=== PATIENT | female | born 1940 | race Caucasian/White ===

== ENCOUNTER 2019-12-18 08:26 | Day surgery (SDC) | payer MEDICARE, SELFPAY ==
[2019-12-12 13:25] VITALS: BMI 24.5
--- NOTE | 2019-12-13 08:02 | HO.ANESPROP2 ---
HPI - Anesthesia Eval Consult details Narrative: 79yoF for colonoscopy PMFSH Past Medical History Medical History (Updated 12/12/19 @ 13:34 by Dorita Cabrera) GERD (gastroesophageal reflux disease) HTN (hypertension) Surgical History Surgical History (Updated 12/12/19 @ 13:34 by Dorita Cabrera) H/O arthroscopic knee surgery H/O excision of ganglion cyst H/O hemorrhoidectomy H/O rectocele repair History of breast lump/mass excision Hx of colonoscopy Hx of esophagogastroduodenoscopy History of Problems with Anesthesia: Unobtainable Meds Allergies Allergy/AdvReac Type Severity Reaction Status Date / Time amoxicillin Allergy Unknown hives Unverified 05/29/19 00:00 ampicillin Allergy Unknown hives Unverified 05/29/19 00:00 diclofenac [Voltaren] Allergy Unknown Verified 05/29/19 00:00 diltiazem [Tiazac] Allergy Unknown Verified 05/29/19 00:00 Erythromycin Allergy Unknown hives Unverified 05/29/19 00:00 etodolac Allergy Unknown Verified 05/29/19 00:00 meclofenamic acid Allergy Unknown Verified 05/29/19 00:00 Lodine Allergy Unknown Uncoded 05/29/19 00:00 Home Medications Medication Instructions Recorded Confirmed Type amlodipine 1 tab PO DAILY 12/12/19 12/12/19 History aspirin 81 mg PO DAILY 12/12/19 12/12/19 History cholecalciferol (vitamin D3) 50 mcg PO DAILY 12/12/19 12/12/19 History [Vitamin D3] valsartan 1 tab PO DAILY 12/12/19 12/12/19 History vitamin B complex 1 tab PO DAILY 12/12/19 12/12/19 History Exam Exam Date and Time: December 13, 2019 0802 Height,Weight and Vital Signs: Height 5 ft 2 in Weight 60.781 kg Pertinent Lab Results Pertinent Lab Results: 07/2019 BMP WNL Assessment and Plan Assessment Anesthesia Assessment: Chart Reviewed
[2019-12-18 08:32] VITALS: BP 137/58; PULSE 97; RESP 16; TEMP 36.9; O2SAT 97
--- NOTE | 2019-12-18 08:53 | P.CONAN_ITS ---
[facility] Past Medical History Medical History (Updated 12/18/19 @ 08:55 by Vane Neely) GERD (gastroesophageal reflux disease) HTN (hypertension) Obstructive sleep apnea Surgical History Surgical History H/O arthroscopic knee surgery H/O excision of ganglion cyst H/O hemorrhoidectomy H/O rectocele repair History of breast lump/mass excision Hx of colonoscopy Hx of esophagogastroduodenoscopy Social History Social History Smoking Status: Never smoker Use of substances other than those prescribed or required for medical reasons: No Advance Directives: No Advance Directives Information Provided: Yes Meds Allergies Allergy/AdvReac Type Severity Reaction Status Date / Time amoxicillin Allergy Unknown hives Unverified 05/29/19 00:00 ampicillin Allergy Unknown hives Unverified 05/29/19 00:00 diclofenac [Voltaren] Allergy Unknown Verified 05/29/19 00:00 diltiazem [Tiazac] Allergy Unknown Verified 05/29/19 00:00 Erythromycin Allergy Unknown hives Unverified 05/29/19 00:00 etodolac Allergy Unknown Verified 05/29/19 00:00 meclofenamic acid Allergy Unknown Verified 05/29/19 00:00 Lodine Allergy Unknown Uncoded 05/29/19 00:00 Home Medications Medication Instructions Recorded Confirmed Type amlodipine 1 tab PO DAILY 12/12/19 12/18/19 History aspirin 81 mg PO DAILY 12/12/19 12/12/19 History cholecalciferol (vitamin D3) 50 mcg PO DAILY 12/12/19 12/12/19 History [Vitamin D3] valsartan 1 tab PO DAILY 12/12/19 12/18/19 History vitamin B complex 1 tab PO DAILY 12/12/19 12/12/19 History Exam Exam Date and Time: December 18, 2019 0853 Height,Weight and Vital Signs: Height 5 ft 2 in Weight 60.781 kg
[2019-12-18] MEDS: Lactated Ringers 1,000 ML 100 ML IVCONT (08:56)
[2019-12-18 10:28] VITALS: BP 132/50; PULSE 79; RESP 16; TEMP 36.4; O2SAT 98
--- NOTE | 2019-12-18 10:32 | PM.OP ---
Brief Operative Note Date of procedure: 12/18/19 Pre-op diagnosis: Screening Post-op diagnosis: other (Colon polyp, diverticulosis, Int/Ext Hemorrhoids) Procedure: Colonoscopy to cecum with biopsy Surgeon: Sea Wilson Anesthesia: MAC Pathology: other (A. Colon polyp at 30cm) Condition: stable Disposition: PACU
[2019-12-18 10:46] VITALS: BP 125/53; PULSE 80; RESP 14; O2SAT 98
--- NOTE | 2019-12-18 10:50 | OP_ITS ---
SURGEON: Sea Wilson MD INDICATIONS: The patient presents for evaluation of colorectal cancer screening, personal history of tubular adenoma of the colon, and family history of colon cancer. Full consent has been obtained from her for this, including risks of bleeding and perforation. PREOPERATIVE DIAGNOSIS: POSTOPERATIVE DIAGNOSIS: PROCEDURE PERFORMED: Colonoscopy to cecum with biopsy and removal of polyp. ESTIMATED BLOOD LOSS: COMPLICATIONS: ANESTHESIA: Monitored anesthesia care. ASSISTANTS: SPECIMENS: PREOPERATIVE DIAGNOSES: Colorectal cancer screening, family history of colon cancer, personal history of tubular adenoma of the colon. POSTOPERATIVE DIAGNOSES: Colorectal cancer screening, family history of colon cancer, personal history of tubular adenoma of the colon, colon polyp, diverticulosis, internal hemorrhoids, external hemorrhoids. DESCRIPTION OF PROCEDURE: The patient was placed in the left lateral decubitus position. The digital rectal exam revealed some external hemorrhoidal tissue. The Olympus video pediatric colonoscope was entered into the rectum and advanced easily to the cecum. Once in the cecum, I did identify normal-appearing cecal pouch with appendiceal orifice and a normal-appearing ileocecal valve. The entire cecum and ileocecal valve appeared normal. There was transillumination of light deep in the right lower quadrant. The scope was then slowly withdrawn assessing all mucosal surfaces carefully. Preparation was excellent. At 30 cm, there was a flat approximately 4 mm polyp, which was biopsied and completely removed with cold biopsy forceps. I did not visualize any other polyps, colitis, nor angiodysplasia. There was a mild amount of sigmoid diverticulosis. In the rectum, scope was retroflexed visualizing internal hemorrhoids, but no other pathology. The rectal mucosa appeared normal. The scope was straightened and withdrawn from the patient. She tolerated the procedure well and was returned to recovery area in stable condition. IMPRESSION: 1. Small colon polyp, status post biopsy and removal. 2. Mild diverticulosis. 3. Internal and external hemorrhoids. PLAN: The results of the pathology will be checked. Given her age, minimal findings, and multiple previous colonoscopies, even if this polyp today is a tubular adenoma, I do not think she will need any further screening colonoscopies in the future. As such, she will see me on a p.r.n. basis. MD AKASH Lopez/ANNIE / [phone]
[2019-12-18 11:04] VITALS: BP 135/58; PULSE 78; RESP 16; TEMP 36.4; O2SAT 96
== END 2019-12-18 11:43 | disposition home or self-care (01) ==
PROVIDERS: PCP Internal Medicine; Visit Provider Internal Medicine
PROC: 0DJD8ZZ Inspection of Lower Intestinal Tract, Via Natural or Artificial Opening Endoscopic (ICD-10-PCS; CPT 45378; principal; 2019-12-18 09:50)
DX: Z12.11 Encounter for screening for malignant neoplasm of colon (principal); Z86.010 Personal history of colon polyps; Z80.0 Family history of malignant neoplasm of digestive organs; D12.5 Benign neoplasm of sigmoid colon; K57.30 Diverticulosis of large intestine without perforation or abscess without bleeding; K64.8 Other hemorrhoids; K64.4 Residual hemorrhoidal skin tags; I10 Essential (primary) hypertension; Z79.82 Long term (current) use of aspirin; Z79.899 Other long term (current) drug therapy; Z88.1 Allergy status to other antibiotic agents; Z88.8 Allergy status to other drugs, medicaments and biological substances
CPT/HCPCS: 45380; 88305

== ENCOUNTER → 2020-03-04 15:48 | Outpatient (BNVA) | payer MEDICARE, SELFPAY | PROVIDERS: PCP Internal Medicine; Visit Provider Surgery | DX: M79.89 Other specified soft tissue disorders (principal); R22.31 Localized swelling, mass and lump, right upper limb | CPT/HCPCS: 99202 ==

== ENCOUNTER → 2020-08-27 13:13 | Outpatient (BNVA) | payer MEDICARE, SELFPAY | PROVIDERS: PCP Internal Medicine; Referring Provider Internal Medicine; Visit Provider Surgery | DX: M79.89 Other specified soft tissue disorders (principal) | CPT/HCPCS: 99212 ==

== ENCOUNTER 2020-10-26 05:58 | Day surgery (SDC) | payer MEDICARE, SELFPAY ==
[2020-10-16 11:10] VITALS: BMI 25.4
[2020-10-26 06:10] VITALS: BMI 24.5
[2020-10-26 06:11] VITALS: BP 179/69; PULSE 84; RESP 18; TEMP 36.9; O2SAT 97
[2020-10-26] MEDS: Lactated Ringers 1,000 ML 100 ML IVCONT (06:34)
[2020-10-26] MEDS: vancomycin HCL 750 MG in 0.9 % Sodium Chloride 250 ML 270 MG IV (06:39)
--- NOTE | 2020-10-26 07:06 | HO.ANESPROP2 ---
[facility] Active Problems Active Problems: All Active Problems (Updated 08/27/20 @ 13:39 by Spike Tejeda MD) Mass of soft tissue (Acute) Obstructive sleep apnea (Acute) Past Medical History Medical History GERD (gastroesophageal reflux disease) HTN (hypertension) Obstructive sleep apnea Family History Family History Mother Colon cancer Father Mouth cancer Lung cancer Family history of problems with anesthesia: No Surgical History Surgical History H/O arthroscopic knee surgery H/O excision of ganglion cyst H/O hemorrhoidectomy H/O rectocele repair History of breast lump/mass excision Hx of colonoscopy Hx of esophagogastroduodenoscopy History of Problems with Anesthesia: No Social History Social History Alcohol intake: never Patient Tobacco Use Status: Never used Tobacco Use of substances other than those prescribed or required for medical reasons: No Have you been hit, kicked, punched, or otherwise hurt by someone within the past year? If so, by whom?: No Are you DNR?: No Advance Directives Information Provided: No Meds Allergies Allergy/AdvReac Type Severity Reaction Status Date / Time amoxicillin Allergy Intermediate hives Verified 10/26/20 06:19 ampicillin Allergy Intermediate hives Verified 10/26/20 06:19 Erythromycin Allergy Intermediate hives Verified 10/26/20 06:19 diclofenac [Voltaren] Allergy Unknown Unknown Verified 10/26/20 06:19 diltiazem [Tiazac] Allergy Unknown Unknown Verified 10/26/20 06:19 etodolac Allergy Unknown Unknown Verified 10/26/20 06:19 meclofenamic acid Allergy Unknown Unknown Verified 10/26/20 06:19 Lodine Allergy Unknown Unknown Uncoded 10/26/20 06:19 Active Medications: Current Medications Generic Name Dose Route Start Last Admin Trade Name Freq PRN Reason Stop Dose Admin Vancomycin HCl 750 mg/ Sodium 265 mls @ 270 mls/hr 10/26/20 06:30 10/26/20 06:39 Chloride IV 10/26/20 07:28 270 mls/hr PREOP ONE Administration Lactated Ringer's 1,000 mls @ 100 mls/hr 10/26/20 06:00 10/26/20 06:34 Lr IVCONT 100 mls/hr .Q10H KADEN Administration Pharmacy Consult 1 each 10/26/20 05:48 10/26/20 06:35 Consult Rx Vancomycin Dosing MISCELLANE 1 each DAILY PRN Administration Consult order Home Medications Medication Instructions Recorded Confirmed Last Taken Type amlodipine 5 mg tablet 1 tab PO DAILY 12/12/19 10/16/20 12/18/19 History aspirin 81 mg tablet 81 mg PO DAILY 12/12/19 10/16/20 Unknown History cholecalciferol (vitamin D3) 50 50 mcg PO DAILY 12/12/19 10/16/20 Unknown History mcg (2,000 unit) tablet (Vitamin D3) valsartan 160 mg tablet 1 tab PO DAILY 12/12/19 10/16/20 12/18/19 History vitamin B complex 1 tab PO DAILY 12/12/19 10/16/20 Unknown History calcium 1 tab PO DAILY 03/04/20 10/16/20 Unknown History carbonate,citrate-magnesium oxide 200 mg calcium-50 mg tablet Exam Exam Date and Time: October 26, 2020 0706 Height,Weight and Vital Signs: Height 5 ft 1 in Weight 58.967 kg Last Vital Signs Temp 98.5 F 10/26/20 06:11 Pulse 84 10/26/20 06:11 Resp 18 10/26/20 06:11 BP 179/69 H 10/26/20 06:11 Pulse Ox 97 10/26/20 06:11 Airway Mallampati Class: II TM Dist: >3cm Neck ROM: Full Assessment and Plan Assessment Anesthesia Assessment: Anesthesia Plan Discussed and Chart Reviewed Final Anesthetic Review Family History of Problems with Anesthesia: No History of Problems with Anesthesia: No NPO: Yes ASA Class: II Final Preanesthetic Review: No Changes in Pt Med Stat, Meds/Allgs Chart Reviewed, Consent Obtained/Reviewed and Anes Risks/Benef Reviewed Patient Risk: Low Procedure Risk: Low Assessment/Block/Sedation in SS: Assess/Block/Sedation-SS Anesthetic Plan Anesthetic Plan: GA and MAC: Disposition: Standard PACU
--- NOTE | 2020-10-26 07:22 | MHC.SHP ---
Pre-Procedural Eval Section A Date of Service: 10/26/20 The patient is an INPATIENT: No Changes since office visit: Yes Patient answered all questions; No Cold of Flu in the past 2 weeks, No New Medical Problems and No Changes in Medication The History & Physical has been completed within 30 days and I have reviewed it.: Yes Section B Chief Complaint: Mass of Soft Tissue Allergies: Allergies Allergy/AdvReac Type Severity Reaction Status Date / Time amoxicillin Allergy Intermediate hives Verified 10/26/20 06:19 ampicillin Allergy Intermediate hives Verified 10/26/20 06:19 Erythromycin Allergy Intermediate hives Verified 10/26/20 06:19 diclofenac [Voltaren] Allergy Unknown Unknown Verified 10/26/20 06:19 diltiazem [Tiazac] Allergy Unknown Unknown Verified 10/26/20 06:19 etodolac Allergy Unknown Unknown Verified 10/26/20 06:19 meclofenamic acid Allergy Unknown Unknown Verified 10/26/20 06:19 Lodine Allergy Unknown Unknown Uncoded 10/26/20 06:19 Plan Diagnosis/Plan: Unchanged I have reviewed the history and physical and performed a pertinent physical examination on my patient. No changes have occurred unless specified.
--- NOTE | 2020-10-26 08:18 | W.PM.OPN ---
Operative Note Operative Note Date of Service: 10/26/20 Narrative: Preoperative diagnosis: Right upper arm lipoma Postoperative diagnosis: Same Procedure: Excision of lipoma right upper arm Surgeon: Spike Tejeda MD Senior Web Analyst: No physician Anesthesia: Mac Indications for procedure: 80-year-old female with a large soft tissue mass in the right upper arm, increasing in size. Operative findings: Large lipoma measuring approximately 8 cm in diameter in the right upper arm Specimen: Lipoma right upper arm Estimated blood loss: 5 cc Complications: None Procedure details: Patient was brought to the OR and placed in a supine position. After administering light sedation the patient right upper arm was prepped with ChloraPrep and draped in a sterile fashion. A surgical time-out was called and the consent confirmed. Patient received preoperative vancomycin and Venodyne boots were in place. Local anesthesia consisting of 1% lidocaine with epinephrine plus Sensorcaine 0.25% Sensorcaine with epinephrine was infiltrated circumferentially around the lipoma. Incision was then made in longitudinal fashion carried down through subcutaneous tissue up to the lipoma. A combination of blunt sharp dissection was then used to dissect the lipoma from the surrounding subcutaneous tissue. A portion of the lipoma extended below the muscle fascia. This was dissected free and sent to pathology for further examination. Wounds were then checked for hemostasis. Wounds were then irrigated with saline solution and suctioned dry. Deep subcutaneous tissue was then reapproximated using interrupted 3-0 Polysorb sutures. Dermis was reapproximated using interrupted 3-0 Polysorb sutures. Skin was then closed using a running subcuticular 4-0 Polysorb suture. Steri-Strips 2 x 2 gauze and Tegaderm were then applied. The patient tolerated the procedure well. Sponge, instrument, needle counts reported as correct. The patient was transferred to PACU in stable condition.
[2020-10-26 08:22] VITALS: BP 88/34; PULSE 75; RESP 14; TEMP 36.3; O2SAT 96
[2020-10-26 08:38] VITALS: BP 125/50; PULSE 70; RESP 16; TEMP 36.3; O2SAT 96
[2020-10-26 08:43] VITALS: BP 126/54; PULSE 68; RESP 16; O2SAT 96
== END 2020-10-26 09:32 | disposition home or self-care (01) ==
PROVIDERS: PCP Internal Medicine; Visit Provider Surgery
PROC: (CPT 24073; principal; 2020-10-26 07:30)
DX: D17.21 Benign lipomatous neoplasm of skin and subcutaneous tissue of right arm (principal); I10 Essential (primary) hypertension; G47.33 Obstructive sleep apnea (adult) (pediatric); K21.9 Gastro-esophageal reflux disease without esophagitis; Z79.82 Long term (current) use of aspirin; Z79.899 Other long term (current) drug therapy; Z88.0 Allergy status to penicillin; Z88.1 Allergy status to other antibiotic agents; Z88.8 Allergy status to other drugs, medicaments and biological substances
CPT/HCPCS: 24073; 88304; J2405; J3010; J3370

== ENCOUNTER → 2020-11-03 14:37 | Outpatient (BNVA) | payer MEDICARE, SELFPAY | PROVIDERS: PCP Internal Medicine; Referring Provider Internal Medicine; Visit Provider Surgery | DX: Z48.817 Encounter for surgical aftercare following surgery on the skin and subcutaneous tissue (principal); Z87.2 Personal history of diseases of the skin and subcutaneous tissue | CPT/HCPCS: 99212 ==

== ENCOUNTER 2020-12-07 10:48 | Outpatient (REF) | payer MEDICARE, SELFPAY ==
--- NOTE | ~2020-12-07 | MM_ITS ---
EXAMINATION: MM SCREENING DIGITAL BREAST TOMOSYNTHESIS, BILATERAL CLINICAL INFORMATION: Screening. Asymptomatic. The lifetime risk of breast cancer based on the Tyrer-Cuzick Model is 2%. COMPARISON: Mammography: 10/16/2019, 10/11/2018, 09/29/2017 TECHNIQUE: Digital breast tomosynthesis is performed in both the craniocaudal and mediolateral oblique views along with computer-aided detection (CAD). Synthesized 2D images are generated from the tomosynthesis. FINDINGS: There are scattered areas of fibroglandular density (ACR BI-RADS breast composition Category b). There are no significant masses, abnormal calcifications, or other abnormalities. Parenchymal pattern is similar to prior studies. No developing density. The axilla and skin contours are unremarkable. MM/MM tomosynthesis screening BI IMPRESSION: No mammographic evidence of malignancy. ASSESSMENT: BI-RADS 1: Negative RECOMMENDATION: Routine annual mammography screening. This patient's information was entered into a reminder system with a target due date for their next mammogram.
== END 2020-12-07 10:49 | disposition home or self-care (01) ==
LOC: HO.MAMMO 10:48
PROVIDERS: Visit Provider Internal Medicine
DX: Z12.31 Encounter for screening mammogram for malignant neoplasm of breast (principal)
CPT/HCPCS: 77063; 77067

== ENCOUNTER 2021-05-31 12:40 | Outpatient (REF) | payer MEDICARE, SELFPAY ==
--- NOTE | 2021-06-18 13:06 | MHC.AU.AEV ---
Adult Audiological Evaluation Date of Visit: 05/31/21 Reason for Appointment: Patient has noticed that over the last year she is not hearing as well as she used to. She has been experiencing tinnitus. There is a family history of hearing loss in her grandmother, father, and brother. Hearing Handicap Inventory Does a hearing problem cause you to feel embarrassed when meeting new people?: No Does a hearing problem cause you to feel frustrated when talking to members of your family?: No Do you have difficulty when someone speaks in a whisper?: Sometimes Do you feel handicapped by a hearing problem?: No Does a hearing problem cause you difficulty when visiting friends, relatives, or neighbors?: No Does a hearing problem cause you to attend yarsani service services less often than you would like?: No Does a hearing problem cause you to have arguments with family members?: No Does a hearing problem cause you difficulty when listening to TV or radio?: Sometimes Do you feel that any difficult with your hearing limits or hampers your personal or social life?: No Does a hearing problem cause you difficulty when in a restaurants with relatives or friends?: Sometimes HHIE SCORE: 6 Based on HHIE score, patient has: No perceived hearing handicap Ear History: Ear Deformity: None Reported Recent Ear Drainage: None Reported Recent Ear Pain: None Reported Family History of Hearing Loss?: Yes Recent Ear Infections: None Reported Ear Infections in Childhood: None Reported History of Ear Wax Buildup: None Reported Previous Ear Surgery: None Reported Bothersome Tinnitus/Ringing/Noises in Ears: Both Ears Ear used on the phone: Left Ear Blocked/Full Sensation in Ear(s): None Reported History of occupational noise exposure?: No History: No Medical History: Medical History: High Blood Pressure, Pneumonia in 1985, Cataract Eye Surgery in 2013 and 2014 Allergies: [place]cl[place], Erythromycin, Amoxicllin, Ampicillin, Voltaren, Lodine, Tiazac Medication List: Amlodipine, Valsartan, Aspirin, Calcium Magnesium, Vitamin B Complex, Vitamin D3, Magnesium Asporotate Otoscopy: Right Ear: Unremarkable Left Ear: Unremarkable Tympanometry: Tympanometry performed due to: To assess integrity of the middle ear system Right Ear: Normal Middle Ear System (Type A) Left Ear: Normal Middle Ear System (Type A) Hearing Evaluation: Transducer(s) Used: Insert Earphones Method: Conventional Audiometry Stimuli Used: Pure Tones Right Ear: Description of Hearing: Normal from 250-500 Hz, mild at 1000 Hz, normal [id number] Hz, sloping to moderate sensorineural hearing loss by 8000 Hz Left Ear: Description of Hearing: Normal from 250-2000 Hz, sloping to moderate sensorineural hearing loss by 8000 Hz Speech Recognition Threshold (SRT): Method Used: Recorded Lists Stimuli Used: Spondee Words Right Ear: 20 dBHL Left Ear: 20 dBHL Word Discrimination: Method: Recorded Lists Word Lists Used:: W-22 Right Ear: 100% at 60 dBHL Left Ear: 100% at 60 dBHL Most Comfortable Level (MCL): Right Ear: 60 dBHL Left Ear: 60 dBHL QuickSIN: 2 dB SNR loss, which suggests average/normal level of difficulty listening in noise Interpretation of Results: Patient presents with hearing that is mostly within normal range, sloping to a moderate high-frequency sensorineural hearing. With type of hearing loss, the patient is likely still hearing sufficiently well in most daily situations. The hearing loss may become more noticeable if there is background noise or if the person speaking is far away. The speech sounds that may be more difficult to hear include /s/, /th/, and /f/. This can cause certain words to sound similar, such as mouth and mouse . At this time, hearing aids are not warranted. Recommendations: Audiological re-evaluation in one year. To help optimize listening ability: -Minimize background noise when possible -Speak to the patient in a clear voice, from a close distance, and [id number] -Slowing down the rate of speech is usually more helpful than raising one's voice or yelling -Gain the patient's full attention before talking Diagnosis: Primary Diagnosis: H90.3 Bilateral Sensorineural Hearing Loss Signature: Provider: Aneesh Espana, [facility]
== END 2021-05-31 12:41 | disposition home or self-care (01) ==
LOC: HO.SH 12:40
PROVIDERS: Visit Provider Internal Medicine
DX: H91.93 Unspecified hearing loss, bilateral (principal)
CPT/HCPCS: 92557; 92567

== ENCOUNTER 2021-06-01 14:24 | Outpatient (REF) | payer MEDICARE, SELFPAY ==
--- NOTE | ~2021-06-01 | MM_ITS ---
EXAMINATION: BONE DENSITOMETRY CLINICAL INDICATION: Disorder of bone density and structure. COMPARISON: Previous BD dated 02/13/2019 and baseline BD dated 01/13/2005. TECHNIQUE: Using a Interhyp DXA System (software version: 13.1) manufactured by [employer], dual-energy x-ray absorptiometry was performed of the lumbar spine and left hip. The images are of good technical quality. Summary results are attached. FINDINGS: AP SPINE L1-L4: Current: BMD 0.960 g/cm2, Z-score 0.2, T-score -1.8, osteopenia, 1.2% decrease from previous, 7.9% decrease from baseline (<5% change is not significant). Prior: BMD 0.972 g/cm2. Baseline: BMD 1.042 g/cm2. LEFT FEMUR, NECK: Current: BMD 0.822 g/cm2, Z-score 0.7, T-score -1.6, osteopenia. Prior: BMD 0.830 g/cm2. Baseline: BMD 0.893 g/cm2. LEFT FEMUR, TOTAL: Current: BMD 0.891 g/cm2, Z-score 1.2, T-score -0.9, normal, 2.7% decrease from previous, 11.4% decrease from baseline (<5% change is not significant). Prior: BMD 0.916 g/cm2. Baseline: BMD 1.006 g/cm2. IDENTIFIED RISK FACTORS: Height loss, family history (parental hip fracture), menopause. HISTORY OF FRACTURE: None listed. MEDICATIONS: Calcium supplements or multivitamin, vitamin D. MM/XR DEXA axial skeleton IMPRESSION: 1. DIAGNOSIS: Osteopenia based on the lowest T-score value of -1.8 in the lumbar spine applying World Health Organization criteria. 2. 10-YEAR FRACTURE RISK PREDICTION, FRAX: Major osteoporotic fracture (clinical spine, forearm, hip or shoulder) 23.3%. Hip fracture 13.2%. 3. Treatment Recommendations: NOF guidelines recommend consideration for treatment in postmenopausal women and men age 50 and older presenting with the following: -A hip or vertebral (clinical or morphometric) fracture. -T-score less than or equal to -2.5 at the femoral neck or spine after appropriate evaluation to exclude secondary causes. -Low bone mass at the hip or spine and a 10-year fracture probability by FRAX of greater than or equal to 3% for hip fracture or greater than or equal to 20% for major osteoporotic fracture based on the [place] adapted WHO algorithm. 4. Other Recommendations: All treatment decisions require clinical judgment and consideration of individual patient factors, including patient preferences, comorbidities, previous drug use, risk factors not captured in the FRAX model (e.g. frailty, falls, vitamin D deficiency, increased bone turnover, interval significant decline in bone density) and possible under or overestimation of fracture risk by FRAX. Additional medical evaluation for secondary cause of low bone mineral density may be appropriate. FUTURE SCAN RECOMMENDATION: People with diagnosed cases of osteoporosis or at high risk for fracture should have regular bone mineral density tests. For patients eligible for Medicare, routine testing is allowed once every 2 years. The testing frequency can be increased to one year for patients who have rapidly progressing disease, those who are receiving or discontinuing medical therapy to restore bone mass, or have additional risk factors.
== END 2021-06-01 14:25 | disposition home or self-care (01) ==
LOC: HO.MAMMO 14:24
PROVIDERS: Visit Provider Internal Medicine
DX: Z13.820 Encounter for screening for osteoporosis (principal); Z78.0 Asymptomatic menopausal state; M85.80 Other specified disorders of bone density and structure, unspecified site
CPT/HCPCS: 77080

== ENCOUNTER 2021-12-08 11:00 | Outpatient (REF) | payer MEDICARE, SELFPAY ==
--- NOTE | ~2021-12-08 | MM_ITS ---
EXAMINATION: MM SCREENING DIGITAL BREAST TOMOSYNTHESIS, BILATERAL CLINICAL INFORMATION: Screening. Asymptomatic. The lifetime risk of breast cancer based on the Tyrer-Cuzick Model is under 2%. COMPARISON: Mammography: 12/07/2020, 10/16/2019, 10/11/2018 TECHNIQUE: Digital breast tomosynthesis is performed in both the craniocaudal and mediolateral oblique views along with computer-aided detection (CAD). Synthesized 2D images are generated from the tomosynthesis. FINDINGS: There are scattered areas of fibroglandular density (ACR BI-RADS breast composition Category b). Parenchymal pattern is similar to prior studies. No developing density or architectural abnormality. There are no significant masses, abnormal calcifications, or other abnormalities. The axilla and skin contours are unremarkable. No significant changes. MM/MM tomosynthesis screening BI IMPRESSION: No mammographic evidence of malignancy. ASSESSMENT: BI-RADS 1: Negative RECOMMENDATION: Routine annual mammography screening. This patient's information was entered into a reminder system with a target due date for their next mammogram.
== END 2021-12-08 11:01 | disposition home or self-care (01) ==
LOC: HO.MAMMO 11:00
PROVIDERS: Visit Provider Internal Medicine
DX: Z12.31 Encounter for screening mammogram for malignant neoplasm of breast (principal)
CPT/HCPCS: 77063; 77067

== ENCOUNTER 2022-12-14 09:29 | Outpatient (REF) | payer MEDICARE, SELFPAY ==
--- NOTE | ~2022-12-14 | MM_ITS ---
EXAMINATION: MM SCREENING DIGITAL BREAST TOMOSYNTHESIS, BILATERAL CLINICAL INFORMATION: Screening. Asymptomatic. COMPARISON: Mammography: 11/30/2021, 12/07/2020, 10/16/2019, 10/11/2018 TECHNIQUE: Digital breast tomosynthesis is performed in both the craniocaudal and mediolateral oblique views along with computer-aided detection (CAD). Synthesized 2D images are generated from the tomosynthesis. FINDINGS: There are scattered areas of fibroglandular density (ACR BI-RADS breast composition Category b). There are no suspicious masses, suspicious grouped calcifications, or areas of architectural distortion in either breast. The parenchymal pattern is stable from prior exams. There are no skin changes. There are no axillary abnormalities. MM/MM tomosynthesis screening BI IMPRESSION: No mammographic evidence of malignancy. ASSESSMENT: BI-RADS BI-RADS 1 - Negative RECOMMENDATION: Routine annual mammography screening. 1 year F/U This examination should not preclude the clinical evaluation of a suspicious palpable abnormality. This patient's information was entered into a reminder system with a target due date for their next mammogram.
== END 2022-12-14 09:30 | disposition home or self-care (01) ==
LOC: HO.MAMMO 09:29
PROVIDERS: PCP Internal Medicine; Visit Provider Internal Medicine
DX: Z12.31 Encounter for screening mammogram for malignant neoplasm of breast (principal)
CPT/HCPCS: 77063; 77067

== ENCOUNTER → 2022-12-14 09:45 | Outpatient (BNV) | payer MEDICARE, SELFPAY | PROVIDERS: PCP Internal Medicine; Visit Provider Radiology Diagnostic Radiology | DX: Z12.31 Encounter for screening mammogram for malignant neoplasm of breast (principal) | CPT/HCPCS: 77063; 77067 ==

== ENCOUNTER 2023-03-15 14:19 | Outpatient (AMB) | payer MEDICARE, SELFPAY ==
[2023-03-15 14:22] VITALS: BP 122/66; PULSE 81; BMI 25.2
--- NOTE | 2023-03-15 14:22 | MHC.OFFVIS ---
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 Accompanied by: Self / Same As Patient Allergies amoxicillin Allergy (Intermediate, Verified 03/15/23 14:25) Hives ampicillin Allergy (Intermediate, Verified 03/15/23 14:25) Hives erythromycin base Allergy (Intermediate, Verified 03/15/23 14:25) Hives diclofenac [From Voltaren] Allergy (Unknown, Verified 03/15/23 14:25) Unknown diltiazem [From Tiazac] Allergy (Unknown, Verified 03/15/23 14:25) Unknown etodolac Allergy (Unknown, Verified 03/15/23 14:25) Unknown meclofenamic acid Allergy (Unknown, Verified 03/15/23 14:25) Unknown Lodine Allergy (Unknown, Uncoded 03/15/23 14:25) Unknown Medication List - Last Reconciled 03/15/23 by Malik An MD amlodipine 5 mg PO DAILY aspirin 81 mg PO DAILY calcium carb and citrat-mag ox 200 mg calcium- 50 mg 1 tab PO DAILY cholecalciferol (vitamin D3) (Vitamin D3) 50 mcg PO DAILY valsartan 160 mg PO DAILY vitamin B complex 1 tab PO DAILY HPI HPI Comments History of Present Illness Details Pleasant 82-year-old female who is referred to us for chest pain she has been experiencing left-sided dull ache which happens randomly. The area on the chest is sensitive and when she touches it is somewhat tender. Even when she is driving in the seatbelt touch is the area she feels uncomfortable. She is active and does not get any exertional discomfort in the chest. 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 She is saying that she tried to walk up hill recently and had mild discomfort in the throat. She is on a calcium channel ara 5 mg amlodipine and valsartan for hypertension. Her blood pressure control is good. She said she had a of blood workup recently and her cholesterol was normal. She has been a lifelong nonsmoker. She did not have any 2nd hand smoke exposure. [facility] Medical History (Updated 03/15/23 @ 14:55 by Malik An MD) Obstructive sleep apnea HTN (hypertension) GERD (gastroesophageal reflux disease) Surgical History H/O excision of ganglion cyst H/O arthroscopic knee surgery History of breast lump/mass excision H/O rectocele repair H/O hemorrhoidectomy Hx of esophagogastroduodenoscopy Hx of colonoscopy Family History Mother Colon cancer Father Mouth cancer Lung cancer Social History Alcohol intake: never Patient Tobacco Use Status: Never used Tobacco Review of Systems Const Denies chills, Denies daytime sleepiness, Denies fatigue, Denies fever(s), Denies frequent falls, Denies night sweats, Denies snoring, Denies weakness, Denies weight gain and Denies weight loss Eyes Denies loss of vision ENT Denies dizziness and Denies hearing loss Card Denies chest pain with activity, Denies syncope, Denies rapid heart rate, Denies edema, Denies claudication, Denies leg edema, Denies lightheadedness, Denies dyspnea, Denies dyspnea on exertion and Denies orthopnea Resp Denies cough, Denies excessive phlegm production, Denies dyspnea, Denies dyspnea on exertion, Denies snoring and Denies wheezing GI Denies abdominal pain, Denies hematochezia, Denies change in bowel habits, Denies change in stool character, Denies heartburn, Denies nausea and Denies vomiting Denies hematuria, Denies urinary frequency and Denies dysuria Musc Denies arthralgias, Denies muscle weakness, Denies numbness and Denies tingling Skin/Breast Denies nail changes and Denies rash Neuro Denies Abnormal speech present, Denies dizziness, Denies syncope, Denies frequent falls, Denies loss of vision, Denies memory loss, Denies numbness, Denies tingling and Denies weakness Psych Denies depression and Denies memory loss Endo Denies fatigue Aller/Immun Denies wheezing Physical Exam Vital Signs: Last Vital Signs Pulse 81 03/15/23 14:22 BP 122/66 03/15/23 14:22 BMI result Body Mass Index 25.2 GENERAL APPEARANCE: in no acute distress, pleasant. NECK: no carotid bruit, no jugular venous distention. SKIN: no suspicious lesions, warm and dry. HEART: no murmurs, regular rate and rhythm. LUNGS: clear to auscultation bilaterally. ABDOMEN: soft, nontender. EXTREMITIES: no edema. PERIPHERAL PULSES: equal. NEUROLOGIC: No gross deficits, AAO X 3 Neuro Speech: No Abnormal speech present Office Procedures EKG Details: Sinus rhythm 81 beats per minute, nonspecific ST abnormality, QTC 434 milliseconds. [id number], Complete Assessment & Plan Assessment & Plan (1) HTN (hypertension): Code(s): I10 - Essential (primary) hypertension (2) Chest discomfort: Code(s): R07.89 - Other chest pain Plan Pleasant 82-year-old female with background of hypertension presenting for assessment of chest pain. She has left-sided dull ache which happens randomly but clearly it is nonexertional. I think this is non anginal pain and likely musculoskeletal in origin. She has been experiencing throat discomfort with activity and had stress testing done for that in 1999. This was followed by cardiac catheterization and she was told that she may have syndrome X. She still gets some symptoms in the throat with activity and recently tried to go up hill and experienced throat discomfort. I am going to arrange a stress echocardiogram for her. Continue same medications otherwise. Thank you for allowing me to participate in the care of your patient. Please feel free to contact me if you have any questions. Orders: Orders CA echo stress exercise Today R07.89 - Other chest pain Coding Level of Care Code New Pt Level 4 (66792) Diagnoses HTN (hypertension) I10 Chest discomfort R07.89 CPT Codes EKG - CPT: [id number], Complete ([id number])
== END 2023-03-15 14:52 | disposition home or self-care (01) ==
PROVIDERS: PCP Internal Medicine; Visit Provider Internal Medicine Cardiovascular Disease
DX: I10 Essential (primary) hypertension (principal); R07.89 Other chest pain
CPT/HCPCS: 93010; 99204

== ENCOUNTER → 2023-03-15 14:19 | Outpatient (BNVA) | payer MEDICARE, SELFPAY | PROVIDERS: PCP Internal Medicine; Visit Provider Internal Medicine Cardiovascular Disease | DX: I10 Essential (primary) hypertension (principal); R07.89 Other chest pain | CPT/HCPCS: 93005; 99202 ==

== ENCOUNTER → 2023-03-31 10:39 | Outpatient (REF) | payer MEDICARE, SELFPAY ==
--- NOTE | 2023-03-31 10:41 | CA_ITS ---
Acquisition Time: 2023-03-31 10:42:50 Total Exercise Time: 00:05:14 Test Indications: CP Medications: SEE H Protocol: MOD KELSY Max HR: 127 BPM 90% of Pred: 140 BPM Max BP: 148/075 mmHG Max Work Load: 3.4 METS Exercise stress test wth exercise 5 min 14 sec of Modified Kelsy protocol, achieving 90% MPHR, without anginal symptoms, with frequent isolated PACs and brief atrial runs, with lower BP readings during exercise compared to baseline and in recovery ( can't exclude technical issue), with baseline EKG showing nonspecific ST abnormality inferior and V4-V6 then with exercise there is 1-1.5mm horizontal ST depression in those leads, suggesting ischemia. Echo images obtained by [employer] at rest and immediately post peak exercise. Definity contrast used. Test reviewed with Dr Stafford. Referred By: Malik An Overread By: MEHDI CHILDERS
== END ==
LOC: HO.CARD 10:39
PROVIDERS: PCP Internal Medicine; Visit Provider Internal Medicine Cardiovascular Disease
DX: R07.89 Other chest pain (principal)
CPT/HCPCS: 93350; Q9957

== ENCOUNTER → 2023-03-31 10:41 | Outpatient (BNV) | payer MEDICARE, SELFPAY | PROVIDERS: PCP Internal Medicine; Visit Provider Nurse Practitioner Family | DX: R07.89 Other chest pain (principal) | CPT/HCPCS: 93016; 93018; 93350; 93352 ==

== ENCOUNTER 2023-07-24 13:35 | Outpatient (AMB) | payer MEDICARE, SELFPAY ==
[2023-07-24 13:54] VITALS: BP 146/70; PULSE 71; O2SAT 98; BMI 25.2
--- NOTE | 2023-07-24 13:54 | A.OFFVIS_ITS ---
Vital Signs 07/24/23 13:54 Height 5 ft 1 in Weight 133 lb 9.602 oz BMI 25.2 BP 146/70 H Blood Pressure Location Lt brachial Position Sitting Pulse 71 Pulse Source Pulse Oximeter Pulse Oximetry (%) 98 Intake Visit Reasons: 3 mth f/up stress echo Intake Note: pt its doing fine. 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 Accompanied by: Self / Same As Patient Allergies amoxicillin Allergy (Intermediate, Verified 03/15/23 14:25) Hives ampicillin Allergy (Intermediate, Verified 03/15/23 14:25) Hives erythromycin base Allergy (Intermediate, Verified 03/15/23 14:25) Hives diclofenac [From Voltaren] Allergy (Unknown, Verified 03/15/23 14:25) Unknown diltiazem [From Tiazac] Allergy (Unknown, Verified 03/15/23 14:25) Unknown etodolac Allergy (Unknown, Verified 03/15/23 14:25) Unknown meclofenamic acid Allergy (Unknown, Verified 03/15/23 14:25) Unknown Lodine Allergy (Unknown, Uncoded 03/15/23 14:25) Unknown Medication List - Last Reconciled 07/24/23 by Malik An MD amlodipine 5 mg PO DAILY aspirin 81 mg PO DAILY calcium carb and citrat-mag ox 200 mg calcium- 50 mg 1 tab PO DAILY cholecalciferol (vitamin D3) (Vitamin D3) 50 mcg PO DAILY valsartan 160 mg PO DAILY vitamin B complex 1 tab PO DAILY HPI Comments Details: Pleasant 82-year-old female who is referred to us for chest pain she has been experiencing left-sided dull ache which happens randomly. The area on the chest is sensitive and when she touches it is somewhat tender. She is active and does not get any exertional discomfort in the chest. 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 She is saying that she tried to walk up hill recently and had mild discomfort in the throat. She is on a calcium channel ara 5 mg amlodipine and valsartan for hypertension. Her blood pressure control is good. She said she had a of blood workup recently and her cholesterol was normal. She has been a lifelong nonsmoker. She did not have any 2nd hand smoke exposure. 07/24/23: After discussion she was referred for stress echocardiogram. She is returning for follow-up. She was able to exercise for 5 minutes 14 seconds on treadmill. She did not have any anginal symptoms. She had some premature atrial complexes and ST depressions. Stress echo imaging were normal and she did not have any post exercise wall motion abnormality. No obvious diastolic dysfunction was noted. On follow-up she is doing well. She is denying any chest discomfort or shortness of breath. She is saying that she is exercising regularly in gym and has no exertional symptoms. Blood pressure is mildly elevated. [facility] Medical History (Updated 03/15/23 @ 14:55 by Malik An MD) Obstructive sleep apnea HTN (hypertension) GERD (gastroesophageal reflux disease) Surgical History H/O excision of ganglion cyst H/O arthroscopic knee surgery History of breast lump/mass excision H/O rectocele repair H/O hemorrhoidectomy Hx of esophagogastroduodenoscopy Hx of colonoscopy Family History Mother Colon cancer Father Mouth cancer Lung cancer Social History Alcohol intake: never Patient Tobacco Use Status: Never used Tobacco Review of Systems Const Denies chills, Denies fatigue, Denies fever(s), Denies frequent falls, Denies weakness, Denies weight gain and Denies weight loss ENT Denies dizziness Card Denies chest pain, Denies leg edema, Denies lightheadedness, Denies pa lpitations, Denies dyspnea and Denies dyspnea on exertion Resp Denies cough, Denies dyspnea and Denies dyspnea on exertion GI Denies hematochezia Musc Denies abnormal gait, Denies muscle weakness, Denies numbness, Denies radiating pain into limb and Denies tingling Neuro Denies abnormal gait, Denies dizziness, Denies frequent falls, Denies numbness, Denies tingling and Denies weakness Endo Denies fatigue and Denies palpitations Physical Exam Vital Signs: Last Vital Signs Pulse 71 07/24/23 13:54 BP 146/70 H 07/24/23 13:54 Pulse Ox 98 07/24/23 13:54 BMI result Body Mass Index 25.2 GENERAL APPEARANCE: in no acute distress, pleasant. NECK: no carotid bruit, no jugular venous distention. SKIN: no suspicious lesions, warm and dry. HEART: no murmurs, regular rate and rhythm. LUNGS: clear to auscultation bilaterally. ABDOMEN: soft, nontender. EXTREMITIES: no edema. PERIPHERAL PULSES: equal. NEUROLOGIC: No gross deficits, AAO X 3 Results Reviewed Results Reviewed: Protocol: MOD ROBIN Max HR: 127 BPM 90% of Pred: 140 BPM Max BP: 148/075 mmHG Max Work Load: 3.4 METS Exercise stress test wt exercise 5 min 14 sec of Modified Robin protocol, achieving 90% MPHR, without anginal symptoms, with frequent isolated PACs and brief atrial runs, with lower BP readings during exercise compared to baseline and in recovery ( can't exclude technical issue), with baseline EKG showing nonspecific ST abnormality inferior and V4-V6 then with exercise there is 1-1.5mm horizontal ST depression in those leads, suggesting ischemia. Echo images obtained by [employer] at rest and immediately post peak exercise. Definity contrast used. Test reviewed with Dr Stafford. Exercise stress echocardiogram was reviewed. At rest, there is normal LVEF and wall motion. WIth peak exercise, there is appropriate augmentation of wall thickening and contractility. There is normal decrease in end-systolic volumes. Diastolic parameters including mitral annular dopplers, inflow velocities, pulmonary artery systolic pressure from TR velocity were measured during rest and after peak exercise. There is no evidence of resting or exercise induced diastolic dysfunction or pulmonary hypertension. Overall, likely normal study. Assessment & Plan Assessment & Plan (1) HTN (hypertension): Code(s): I10 - Essential (primary) hypertension Category: Medical (2) Chest discomfort: Code(s): R07.89 - Other chest pain Category: Medical Plan Pleasant 82-year-old female who is here for follow-up. She has hypertension and blood pressure is mildly elevated but she seemed anxious since she came to discuss her stress test results. She should have close monitoring of blood pressure and if blood pressure is elevated then amlodipine can be increased to 10 mg daily. In terms of her stress test, she was able to exercise for 5 minutes on treadmill and did not get any chest discomfort or significant shortness of breath. She did have some ST depressions on EKG but did not have any wall motion abnormalities at rest or with stress. Also on follow-up she is denying any symptoms. I think she is clinically stable currently. If she had any recurrent symptoms then we will consider angiography. If blood pressure is elevated on follow-up with primary care physician then amlodipine can be titrated to 10 mg daily or 5 mg twice a day. She will see us back in few months. Thank you for allowing me to participate in the care of your patient. Please feel free to contact me if you have any questions. Coding Level of Care Code Est Pt Level 4 (71777) Diagnoses HTN (hypertension) I10 Chest discomfort R07.89
== END 2023-07-24 14:35 | disposition home or self-care (01) ==
PROVIDERS: PCP Internal Medicine; Visit Provider Internal Medicine Cardiovascular Disease
DX: I10 Essential (primary) hypertension (principal); R07.89 Other chest pain
CPT/HCPCS: 99214

== ENCOUNTER → 2023-07-24 13:35 | Outpatient (BNVA) | payer MEDICARE, SELFPAY | PROVIDERS: PCP Internal Medicine; Visit Provider Internal Medicine Cardiovascular Disease | DX: I10 Essential (primary) hypertension (principal); R07.89 Other chest pain | CPT/HCPCS: 99212 ==

== ENCOUNTER 2023-07-25 08:47 | Outpatient (REF) | payer MEDICARE, SELFPAY | END 2023-07-25 08:48 | disposition home or self-care (01) | LOC: HO.SH 08:47 | PROVIDERS: PCP Internal Medicine; Visit Provider Nurse Practitioner Family | DX: Z01.118 Encounter for examination of ears and hearing with other abnormal findings (principal); H90.3 Sensorineural hearing loss, bilateral | CPT/HCPCS: 92552; 92556; 92567 ==

== ENCOUNTER 2023-11-07 13:37 | Outpatient (REF) | payer MEDICARE, SELFPAY ==
--- NOTE | ~2023-11-07 | MM_ITS ---
EXAMINATION: BONE DENSITOMETRY CLINICAL INDICATION: Menopause. COMPARISON: Previous BD dated 06/01/2021 and baseline BD dated 01/13/2005. TECHNIQUE: Using a [employer] DXA System (software version: 13.1) manufactured by [employer], dual-energy x-ray absorptiometry was performed of the lumbar spine and left hip. The images are of good technical quality. Summary results are attached. FINDINGS: LEFT FEMUR, NECK: Current: BMD 0.819 g/cm2, Z-score 0.8, T-score -1.6, osteopenia. Prior: BMD 0.822 g/cm2. Baseline: BMD 0.893 g/cm2. LEFT FEMUR, TOTAL: Current: BMD 0.862 g/cm2, Z-score 1.1, T-score -1.2, osteopenia, 3.3% decrease from previous, 14.3% decrease from baseline (<5% change is not significant). Prior: BMD 0.891 g/cm2. Baseline: BMD 1.006 g/cm2. AP SPINE L1-L4: Current: BMD 0.925 g/cm2, Z-score 0.0, T-score -2.1, osteopenia, 3.6% decrease from previous, 11.2% decrease from baseline (<5% change is not significant). Prior: BMD 0.960 g/cm2. Baseline: BMD 1.042 g/cm2. IDENTIFIED RISK FACTORS: Menopause, height loss. HISTORY OF FRACTURE: None listed. MEDICATIONS: Calcium, vitamin D. MM/XR DEXA axial skeleton IMPRESSION: 1. DIAGNOSIS: Osteopenia based on the lowest T-score value of -2.1 in the lumbar spine applying World Health Organization criteria. 2. 10-YEAR FRACTURE RISK PREDICTION, FRAX: Major osteoporotic fracture (clinical spine, forearm, hip or shoulder) 13.7%. Hip fracture 3.6%. 3. Treatment Recommendations: NOF guidelines recommend consideration for treatment in postmenopausal women and men age 50 and older presenting with the following: -A hip or vertebral (clinical or morphometric) fracture. -T-score less than or equal to -2.5 at the femoral neck or spine after appropriate evaluation to exclude secondary causes. -Low bone mass at the hip or spine and a 10-year fracture probability by FRAX of greater than or equal to 3% for hip fracture or greater than or equal to 20% for major osteoporotic fracture based on the [place] adapted WHO algorithm. 4. Other Recommendations: All treatment decisions require clinical judgment and consideration of individual patient factors, including patient preferences, comorbidities, previous drug use, risk factors not captured in the FRAX model (e.g. frailty, falls, vitamin D deficiency, increased bone turnover, interval significant decline in bone density) and possible under or overestimation of fracture risk by FRAX. Additional medical evaluation for secondary cause of low bone mineral density may be appropriate. FUTURE SCAN RECOMMENDATION: People with diagnosed cases of osteoporosis or at high risk for fracture should have regular bone mineral density tests. For patients eligible for Medicare, routine testing is allowed once every 2 years. The testing frequency can be increased to one year for patients who have rapidly progressing disease, those who are receiving or discontinuing medical therapy to restore bone mass, or have additional risk factors. Electronically signed by: Avelino Gama MD 11/09/2023 12:06 PM EDT
== END 2023-11-07 13:38 | disposition home or self-care (01) ==
LOC: HO.MAMMO 13:37
PROVIDERS: PCP Internal Medicine; Visit Provider Internal Medicine
DX: Z13.820 Encounter for screening for osteoporosis (principal); Z78.0 Asymptomatic menopausal state
CPT/HCPCS: 77080

== ENCOUNTER 2023-12-19 11:59 | Outpatient (REF) | payer MEDICARE, SELFPAY ==
--- NOTE | ~2023-12-19 | MM_ITS ---
EXAMINATION: MM SCREENING DIGITAL BREAST TOMOSYNTHESIS, BILATERAL CLINICAL INFORMATION: Screening. Asymptomatic. COMPARISON: Mammography: Comparison is made with available priors TECHNIQUE: Digital breast mammography with tomosynthesis is performed in both the craniocaudal and mediolateral oblique views along with computer-aided detection (CAD). FINDINGS: The breasts are heterogeneously dense, which may obscure small masses (ACR BI-RADS breast composition Category c). There are no significant masses, abnormal calcifications, or other abnormalities. MM/MM tomosynthesis screening BI IMPRESSION: No mammographic evidence of malignancy. ASSESSMENT: BI-RADS BI-RADS 1 - Negative RECOMMENDATION: Routine annual mammography screening. 1 year F/U This examination should not preclude the clinical evaluation of a suspicious palpable abnormality. This patient's information was entered into a reminder system with a target due date for their next mammogram. Electronically signed by: Stephanie Greco DO 12/29/2023 05:04 PM EDT
== END 2023-12-19 12:00 | disposition home or self-care (01) ==
LOC: HO.MAMMO 11:59
PROVIDERS: PCP Internal Medicine; Visit Provider Internal Medicine
DX: Z12.31 Encounter for screening mammogram for malignant neoplasm of breast (principal)
CPT/HCPCS: 77063; 77067

== ENCOUNTER → 2023-12-19 12:15 | Outpatient (BNV) | payer MEDICARE, SELFPAY | PROVIDERS: PCP Internal Medicine; Visit Provider Internal Medicine | DX: Z12.31 Encounter for screening mammogram for malignant neoplasm of breast (principal) | CPT/HCPCS: 77063; 77067 ==

== ENCOUNTER 2024-01-17 13:42 | Outpatient (AMB) | payer MEDICARE, SELFPAY ==
[2024-01-17 14:25] VITALS: BP 124/62; PULSE 74; BMI 24.6
--- NOTE | 2024-01-17 14:25 | A.OFFVIS_ITS ---
Vital Signs 01/17/24 14:25 Height 5 ft 1 in Weight 130 lb 1.164 oz BMI 24.6 BP 124/62 Blood Pressure Location Lt brachial Position Sitting Pulse 74 Pulse Source Pulse Oximeter Intake Visit Reasons: 6m follow up Allergies amoxicillin Allergy (Intermediate, Verified 03/15/23 14:25) Hives ampicillin Allergy (Intermediate, Verified 03/15/23 14:25) Hives erythromycin base Allergy (Intermediate, Verified 03/15/23 14:25) Hives diclofenac [From Voltaren] Allergy (Unknown, Verified 03/15/23 14:25) Unknown diltiazem [From Tiazac] Allergy (Unknown, Verified 03/15/23 14:25) Unknown etodolac Allergy (Unknown, Verified 03/15/23 14:25) Unknown meclofenamic acid Allergy (Unknown, Verified 03/15/23 14:25) Unknown Lodine Allergy (Unknown, Uncoded 03/15/23 14:25) Unknown Medication List - Last Reconciled 01/17/24 by Malik An MD amlodipine 2.5 mg PO DAILY aspirin 81 mg PO DAILY calcium carb and citrat-mag ox 200 mg calcium- 50 mg 1 tab PO DAILY cholecalciferol (vitamin D3) (Vitamin D3) 50 mcg PO DAILY valsartan 160 mg PO DAILY vitamin B complex 1 tab PO DAILY HPI Comments Details: Pleasant 83-year-old female who is referred to us for chest pain she has been experiencing left-sided dull ache which happens randomly. The area on the chest is sensitive and when she touches it is somewhat tender. She is active and does not get any exertional discomfort in the chest. 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 She is saying that she tried to walk up hill recently and had mild discomfort in the throat. She is on a calcium channel ara 5 mg amlodipine and valsartan for hypertension. Her blood pressure control is good. She said she had a of blood workup recently and her cholesterol was normal. She has been a lifelong nonsmoker. She did not have any 2nd hand smoke exposure. 07/24/23: After discussion she was referred for stress echocardiogram. She is returning for follow-up. She was able to exercise for 5 minutes 14 seconds on treadmill. She did not have any anginal symptoms. She had some premature atrial complexes and ST depressions. Stress echo imaging were normal and she did not have any post exercise wall motion abnormality. No obvious diastolic dysfunction was noted. On follow-up she is doing well. She is denying any chest discomfort or shortness of breath. She is saying that she is exercising regularly in gym and has no exertional symptoms. Blood pressure is mildly elevated. 01/17/2024: Blood pressure is well controlled. She has been walking and has no exertional complaints. Taking medications regularly. [facility] Medical History (Updated 03/15/23 @ 14:55 by Malik An MD) Obstructive sleep apnea HTN (hypertension) GERD (gastroesophageal reflux disease) Surgical History H/O excision of ganglion cyst H/O arthroscopic knee surgery History of breast lump/mass excision H/O rectocele repair H/O hemorrhoidectomy Hx of esophagogastroduodenoscopy Hx of colonoscopy Family History Mother Colon cancer Father Mouth cancer Lung cancer Social History Alcohol intake: never Patient Tobacco Use Status: Never used Tobacco Review of Systems Const Denies weakness ENT Denies dizziness Card Denies chest pain, Denies chest pain with activity, Denies syncope, Denies rapid heart rate, Denies pedal edema, Denies edema, Denies leg edema, Denies lightheadedness, Denies palpitations, Denies dyspnea, Denies dyspnea on exertion and Denies orthopnea Resp Denies cough, Denies dyspnea and Denies dyspnea on exertion GI Denies hematochezia and Denies change in stool character Musc Denies abnormal gait, Denies muscle cramps, Denies muscle weakness, Denies numbness, Denies radiating pain into limb and Denies tingling Neuro Denies abnormal gait, Denies dizziness, Denies syncope, Denies numbness, Denies tingling and Denies weakness Endo Denies palpitations Physical Exam Vital Signs: Last Vital Signs Pulse 74 01/17/24 14:25 BP 124/62 01/17/24 14:25 BMI result Body Mass Index 24.6 GENERAL APPEARANCE: in no acute distress, pleasant. NECK: no carotid bruit, no jugular venous distention. SKIN: no suspicious lesions, warm and dry. HEART: no murmurs, regular rate and rhythm. LUNGS: clear to auscultation bilaterally. ABDOMEN: soft, nontender. EXTREMITIES: no edema. PERIPHERAL PULSES: equal. NEUROLOGIC: No gross deficits, AAO X 3 Assessment & Plan Assessment & Plan (1) HTN (hypertension): Code(s): I10 - Essential (primary) hypertension Category: Medical Plan Pleasant 82-year-old female who is here for follow-up. Previously had elevated blood pressure and some chest discomfort but on follow- up denying any symptoms. She had stress testing where she had ST depressions but no wall motion abnormalities were noted. Clinically she is stabilized after that and had no further episodes and we have been monitoring her since then. She has been walking and even going uphill she has no symptoms. Continue same medications. She will see us back in few months. Thank you for allowing me to participate in the care of your patient. Please feel free to contact me if you have any questions. Coding Level of Care Code Est Pt Level 4 (97901) Diagnoses HTN (hypertension) I10
== END 2024-01-17 14:57 | disposition home or self-care (01) ==
LOC: HO.HCS 13:42
PROVIDERS: PCP Internal Medicine; Visit Provider Internal Medicine Cardiovascular Disease
DX: I10 Essential (primary) hypertension (principal)
CPT/HCPCS: 99214

== ENCOUNTER → 2024-01-17 13:42 | Outpatient (BNVA) | payer MEDICARE, SELFPAY | PROVIDERS: PCP Internal Medicine; Visit Provider Internal Medicine Cardiovascular Disease | DX: I10 Essential (primary) hypertension (principal) | CPT/HCPCS: 99212 ==

== ENCOUNTER 2024-05-22 12:56 | Outpatient (AMB) | payer MEDICARE, SELFPAY ==
--- NOTE | 2024-05-22 13:12 | MHC.OFFVIS ---
Vital Signs 05/22/24 13:15 Height 5 ft 1 in Weight 128 lb 11.999 oz BMI 24.3 BP 140/60 H Blood Pressure Location Lt brachial Position Sitting Pulse 80 Pulse Source Monitor Intake Visit Reasons: 4 mth f/up Intake Note: 4 mth f/up Derrick Operator Required: No Accompanied by: Self / Same As Patient Allergies amoxicillin Allergy (Intermediate, Verified 03/15/23 14:25) Hives ampicillin Allergy (Intermediate, Verified 03/15/23 14:25) Hives erythromycin base Allergy (Intermediate, Verified 03/15/23 14:25) Hives diclofenac [From Voltaren] Allergy (Unknown, Verified 03/15/23 14:25) Unknown diltiazem [From Tiazac] Allergy (Unknown, Verified 03/15/23 14:25) Unknown etodolac Allergy (Unknown, Verified 03/15/23 14:25) Unknown meclofenamic acid Allergy (Unknown, Verified 03/15/23 14:25) Unknown Lodine Allergy (Unknown, Uncoded 03/15/23 14:25) Unknown Medication List - Last Reconciled 05/22/24 by Malik An MD amlodipine 2.5 mg PO DAILY aspirin 81 mg PO DAILY calcium carb and citrat-mag ox 200 mg calcium- 50 mg 1 tab PO DAILY cholecalciferol (vitamin D3) (Vitamin D3) 50 mcg PO DAILY valsartan 160 mg PO DAILY vitamin B complex 1 tab PO DAILY HPI Comments Details: Pleasant 83-year-old female who is referred to us for chest pain she has been experiencing left-sided dull ache which happens randomly. The area on the chest is sensitive and when she touches it is somewhat tender. She is active and does not get any exertional discomfort in the chest. 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 She is saying that she tried to walk up hill recently and had mild discomfort in the throat. She is on a calcium channel ara 5 mg amlodipine and valsartan for hypertension. Her blood pressure control is good. She said she had a of blood workup recently and her cholesterol was normal. She has been a lifelong nonsmoker. She did not have any 2nd hand smoke exposure. 07/24/23: After discussion she was referred for stress echocardiogram. She is returning for follow-up. She was able to exercise for 5 minutes 14 seconds on treadmill. She did not have any anginal symptoms. She had some premature atrial complexes and ST depressions. Stress echo imaging were normal and she did not have any post exercise wall motion abnormality. No obvious diastolic dysfunction was noted. On follow-up she is doing well. She is denying any chest discomfort or shortness of breath. She is saying that she is exercising regularly in gym and has no exertional symptoms. Blood pressure is mildly elevated. 01/17/2024: Blood pressure is well controlled. She has been walking and has no exertional complaints. Taking medications regularly. 05/22/2024: She returns for follow-up. She has been exercising and has no symptoms with exercise but occasionally feels left-sided upper chest discomfort in an area which she can define with 1 finger breath. She is saying she feels it after doing exercises with her arms. Otherwise in day-to-day life no symptoms. Occasionally also feels palpitations and when she checks her pulse it is skipping beats. These symptoms are quite infrequent. [facility] Medical History (Updated 03/15/23 @ 14:55 by Malik An MD) Obstructive sleep apnea HTN (hypertension) GERD (gastroesophageal reflux disease) Surgical History H/O excision of ganglion cyst H/O arthroscopic knee surgery History of breast lump/mass excision H/O rectocele repair H/O hemorrhoidectomy Hx of esophagogastroduodenoscopy Hx of colonoscopy Family History Mother Colon cancer Father Mouth cancer Lung cancer Social History Alcohol intake: never Patient Tobacco Use Status: Never used Tobacco Review of Systems Const Denies chills, Denies fatigue, Denies fever(s), Denies frequent falls, Denies weakness, Denies weight gain and Denies weight loss ENT Denies dizziness Card Denies chest pain, Denies leg edema, Denies lightheadedness, Denies palpitations, Denies dyspnea and Denies dyspnea on exertion Resp Denies cough, Denies dyspnea and Denies dyspnea on exertion GI Denies hematochezia Musc Denies abnormal gait, Denies muscle weakness, Denies numbness, Denies radiating pain into limb and Denies tingling Neuro Denies abnormal gait, Denies dizziness, Denies frequent falls, Denies numbness, Denies tingling and Denies weakness Endo Denies fatigue and Denies palpitations Physical Exam Vital Signs: Last Vital Signs Pulse 80 05/22/24 13:15 BP 140/60 H 05/22/24 13:15 BMI result Body Mass Index 24.3 GENERAL APPEARANCE: in no acute distress, pleasant. NECK: no carotid bruit, no jugular venous distention. SKIN: no suspicious lesions, warm and dry. HEART: no murmurs, regular rate and rhythm. LUNGS: clear to auscultation bilaterally. ABDOMEN: soft, nontender. EXTREMITIES: no edema. PERIPHERAL PULSES: equal. NEUROLOGIC: No gross deficits, AAO X 3 Office Procedures EKG Details: Sinus rhythm 80 beats per minute, normal axis, nonspecific ST changes, QTC 433 milliseconds. [id number], Complete Assessment & Plan Assessment & Plan (1) HTN (hypertension): Code(s): I10 - Essential (primary) hypertension Category: Medical Plan Pleasant 83-year-old female who is here for follow-up. She previously complained of chest discomfort with elevated blood pressure but those symptoms have improved. Occasionally gets left upper chest pain after exercise. She does not get symptoms during exercise. I think chest discomfort is musculoskeletal in origin. I have explained this to Caryn and she understands. If she had any exertional symptoms she will get back to us. In that case we will consider either a coronary CTA or diagnostic angiogram. Blood pressure readings from home are normal. Currently no changes in medications recommended. Occasionally gets palpitations and I have advised her to buy [email or web address] mobile device. She can record her ECG tracings for infrequent symptoms and can e-mail to us. Thank you for allowing me to participate in the care of your patient. Please feel free to contact me if you have any questions. Coding Level of Care Code Est Pt Level 4 (85850) Diagnoses HTN (hypertension) I10 CPT Codes EKG - CPT: 31378-[id number], Complete ([id number])
[2024-05-22 13:15] VITALS: BP 140/60; PULSE 80; BMI 24.3
--- OUTSIDE RECORDS SUMMARY | 2024-05-22 15:05 | XMS_ITS | Patient Health Record ---
[facility] Address [address] [place] [address] Care Team Providers Care Patent Lawyer Name Role Phone Fili Wright MD Primary Care Provider Jonathan Bunch Unavailable [phone] Allergies Allergen (clinical drug ingredient) Drug/Non Drug Allergy documented on EMR Reaction Allergy Type Onset Date Status amoxicillin Amoxicillin itchy, rash Drug Allergy A ctive ampicillin Ampicillin Unknown Drug Allergy Activ e erythromycin Erythromycin hives Drug Allergy A ctive diltiazem Tiazac itchy, rash Drug Allergy Activ e trimethoprim Trimethoprim Unknown Drug Allergy A ctive Voltaren Unknown Drug Allergy Active Adhesive itchy Allergy Active Penicillin hives Drug Allergy Active Reason For Referral No Information Medications Medication SIG (Take, Route, Frequency, Duration) Notes Start Date End Date Status Fluzone High-Dose 0.5 ML TO BE ADMINISTE RED BY PHARMACIST FOR IMMUNIZATION Intramuscular for 1 Not-Taking Triamcinolone Acetonide 0.1 % APPLY TWICE A DAY TO AFFECTED AREAS ON LEG FOR 1-2 WKS AT A TIME. DO NOT USE ON FACE OR SKIN FOLDS External for 20 Not-Taking Halobetasol Propionate 0.05 % USE 1 APPLICATION TO AFFECTED AREA ONCE A DAY EXTERNALLY External for 15 Not-Taking Night Splint AFO - L1930 as directed 07/22/2021 Active Piroxicam 20 MG 1 capsule with food Orally Once a day for 30 day(s) 10/09/2013 Not-Taking Restasis 0.05 % INSTILL 1 DROP INTO BOTH EYES TWICE A DAY Ophthalmic for 90 Not-Taking Physical Therapy . . . 2-3x/week for 3- 4 weeks 07/22/2021 Active Amlodipine & Diet Manage Prod 5mg Active prednisoLONE Acetate 1 % INSTILL 1 DROP INTO BOTH EYES 4 TIMES A DAY FOR 1 MONTH Ophthalmic for 30 Not-Taking Diovan Not-Taking Ketorolac Tromethamine 0.5 % INSTILL 1 DROP INTO RIGHT EYE TWICE A DAY Ophthalmic for 30 Not-Taking Aspirin 81 MG 1 tablet Orally Once a day Active HYDROcodone-Acetaminophen 5-325 MG (Schedule II Drug) TAKE 1 OR 2 TABLETS BY MOUTH EVERY 4 HOURS NEEDED FOR PAIN Oral for 2 Not-Taking methylPREDNISolone 4 MG TAKE DIRECTED ON DOSE PACK Oral for 6 Not-Taking Vitamin D3 Active Polymyxin B-Trimethoprim 66182-6.1 UNIT/ML INSTILL 1 DROP IN OPERATIVE EYE 3 TIMES A DAY . START 2 DAYS PRIOR TO SURGERY. Ophthalmic for 66 Not-Taking Vitamin B Complex 100 Active Fluorometholone 0.1 % PLACE 1 DROP INTO EACH EYE 3 TIMES A DAY FOR 1 WEEK Ophthalmic for 7 Not-Taking Valsartan 160 MG 1 tablet Orally Once a day for 30 day(s) Active Calcium & Magnesium Carbonates Active Vitamin B 12 Not-Fabian ing Vitamin D Not-Taking amLODIPine Besylate 5 MG 1 tablet Orally Once a day for 30 day(s) Active Aspirin 81 MG 1 tablet Orally Once a day for 30 day(s) Active Calcium Magnesium Ac tive Magnesium Aspartate Active Magnesium Aspartate Active Valsartan 160 MG 1 tablet Orally Once a day for 30 day(s) Active Vitamin B Complex 100 - as directed Injection Active Vitamin D3 25 MCG (1000 UT) 1 capsule Or ally Once a day for 30 day(s) Active Clindamycin HCl 150 MG TAKE 2 CAPSULES B Y MOUTH NOW 1 EVERY 6 HOURS Oral for 7 Not-Taking Immunizations Vaccine Route Administration Date Status Comme nts COVID-19 Pfizer BioNTech Vaccine Unknown 01/18/2021 Administered 1st 04/26/20 2nd 05/17/20 Social History Tobacco use other than smoking: Question Answer Notes Are you an other tobacco user? No Problems Problem Type SNOMED Code ICD Code Onset Dates Problem Status W/U Status Risk Notes Problem Acquired hallux valgus (18169326) Hallux valgus (acquired), left foot (M20.12) Active confirmed Problem Localized, primary osteoarthritis of the ankle and/or foot (797579123) Primary osteoarthrit is, left ankle and foot (M19.072) Active confirmed Problem Acquired hallux valgus (18613492) Hallux valgus (acquired), right foot (M20.11) Active confirmed Plan Of Treatment Pending Test Test Name Order Date X ray : Foot, left 2V 10/09/2013 X ray : Foot, right 3V 07/22/2021 70616, J0702- INJECT or DRAIN, JOINT/BUR SA 04/09/2015 96125, J0702- INJECT or DRAIN, JOINT/BUR SA 08/04/[id number],[id number] TENDON SHEATH/LIGAMENT 0 10/09/[id number],[id number] TENDON SHEATH/LIGAMENT 0 07/22/2021 Insurance Providers Payer Name Payer Address Payer Phone Subscriber Number Group Number Insured Name Patient Relationship to Insured Coverage Start Date Coverage End Date Medicare National [employer] [address] [place] [address] [id number] Caryn Juaerz Self - patient is the insured [employer] [address] [place] [address] [id number] Caryn Juarez Self - patient is the insured Medical (General) History Medical History History ICD Code Arthritis Back,Hip,and Knee pain Cataracts Hypertension Chicken pox Neuropathy Measles Surgical History Surgery Date(Month/Year) tonsillectomy 1950 OS cataract surgery 12/2013 OD cataract surgery 12/2014
--- OUTSIDE RECORDS SUMMARY | 2024-05-22 15:05 | XMS_ITS | Clinical Summary ---
Author Organization [facility] Address [address] [place] [address] Care Team Providers Care Helmet Hat Brim Cutter Name Role Phone Fili Wright MD Primary Care Provider [phone] Allergies Active Allergy Reactions Criticality Noted Date Comments Amoxicillin Hives 01/26/2017 Diclofenac Other (See Comments) 01/26/2017 Diltiazem 01/26/2017 Other reaction(s): Maculopapular Rash Erythromycin Hives 01/26/2017 Etodolac Other (See Comments) 01/26/2017 Meclofenamate Hives 02/01/2019 Trimethoprim Itching 02/01/2019 Medications Medication Sig Dispensed Refills Start Date End Date Status amLODIPine (NORVASC) tablet 5 mg Take 5 mg by mouth. 0 04/08/2019 Activ e aspirin 81 MG chewable tablet 1 tablet 0 Active betamethasone valerate (VALISONE) 0.1 % cream 1 APPLICATION TWICE A DAY EXTERNALLY 14 DAYS 0 05/29/2019 Activ e Cholecalciferol (VITAMIN D-[address]) 25 MCG (1000 UT) tablet Take 1,000 Units by mouth. 0 Active estradiol (ESTRACE) 0.1 MG/GM vaginal cream Place 2 g vaginally. 0 Acti ve estradiol (ESTRACE) 0.1 MG/GM vaginal cream DIRECTED START 1 GM INTRAVAGINALLYAT BEDTIME X14 DAYS THEN 2X WEEK VAGINAL 0 06/27/2019 Active halobetasol (ULTRAVATE) 0.05 % cream 1 application to affected area 0 Active Turmeric 500 MG CAPS Take by mouth. 0 Active valsartan (DIOVAN) tablet 160 mg Take 160 mg by mouth. 0 04/09/2019 Act maryuri Active Problems Problem Noted Date Diagnosed Date It band syndrome, left 08/08/2019 Patellofemoral arthritis of left knee 08/08/2019 Social History Tobacco Use Types Packs/Day Years Used Date Smoking Tobacco: Never Assessed Sex and Gender Information Value Date Recorded Sex Assigned at Not on file Gender Identity Not on file Sexual Orientation Not on file Last Filed Vital Signs Vital Sign Reading Time Taken Comments Blood Pressure - - Pulse - - Temperature - - Respiratory Rate - - Oxygen Saturation - - Inhaled Oxygen Concentration - - Weight 60.3 kg (133 lb) 08/08/2019 1:03 PM EDT Height 154.9 cm (5' 1 ) 08/08/2019 1:03 PM EDT Body Mass Index 25.13 08/08/2019 1:03 PM EDT Plan of Treatment Health Maintenance Due Date Last Done Comments COVID-19 Vaccine (#1) 02/02/1941 Depression Screening 1954 Preventative Health Evaluation 1960 Fall Risk Assessment 08/03/2007 Osteoporosis Screening (DEXA Scan) 08/03/2007 DTap / Tdap / Td (1 - Tdap) 01/12/2009 01/11/2009 RSV Adult > 60+ Yrs or (1 - 1-dose 75+ series) 2017 Influenza Vaccine (#1) 2023 9, 02/14/2018, 12/12/2016, Additional history exists Pneumococcal Vaccine Completed 02/02/2015, 01/12/20 08 Shingrix-Zoster Vaccine Completed 07/16/2018, 04/17 Hepatitis B Vaccines Aged Out No long er eligible based on patient's age to complete this topic RSV Ped < 20 months Aged Out No longe r eligible based on patient's age to complete this topic Care Teams Helmet Hat Brim Cutter Relationship Specialty Start Date End Date Fili Wright MD [address] [facility] [place] [id number] PCP - General Internal Medicine 08/08/19
== END 2024-05-22 13:40 | disposition home or self-care (01) ==
LOC: HO.HCS 12:57
PROVIDERS: PCP Internal Medicine; Visit Provider Internal Medicine Cardiovascular Disease
DX: I10 Essential (primary) hypertension (principal)
CPT/HCPCS: 93010; 99214

== ENCOUNTER → 2024-05-22 12:56 | Outpatient (BNVA) | payer MEDICARE, SELFPAY | PROVIDERS: PCP Internal Medicine; Visit Provider Internal Medicine Cardiovascular Disease | DX: I10 Essential (primary) hypertension (principal); R94.31 Abnormal electrocardiogram [ECG] [EKG] | CPT/HCPCS: 93005; 99212 ==

== ENCOUNTER 2024-09-25 14:31 | Outpatient (AMB) | payer MEDICARE, SELFPAY ==
--- NOTE | 2024-09-25 14:35 | A.OFFVIS_ITS ---
Vital Signs 09/25/24 14:38 Height 5 ft 1 in Weight 128 lb 11.999 oz BMI 24.3 BP 122/70 Blood Pressure Location Lt brachial Position Sitting Pulse 64 Pulse Source Pulse Oximeter Intake Visit Reasons: 4 mth f/up Intake Note: 4 mth f/up Director Data Analytics Required: No Accompanied by: Self / Same As Patient Allergies amoxicillin Allergy (Intermediate, Verified 03/15/23 14:25) Hives ampicillin Allergy (Intermediate, Verified 03/15/23 14:25) Hives erythromycin base Allergy (Intermediate, Verified 03/15/23 14:25) Hives diclofenac (From Voltaren) Allergy (Unknown, Verified 03/15/23 14:25) Unknown diltiazem (From Tiazac) Allergy (Unknown, Verified 03/15/23 14:25) Unknown etodolac Allergy (Unknown, Verified 03/15/23 14:25) Unknown meclofenamic acid Allergy (Unknown, Verified 03/15/23 14:25) Unknown Lodine Allergy (Unknown, Uncoded 03/15/23 14:25) Unknown Medication List - Last Reconciled 09/25/24 by Raffi Suarez NP amlodipine 2.5 mg PO DAILY aspirin 81 mg PO DAILY calcium carb and citrat-mag ox 200 mg calcium- 50 mg 1 tab PO DAILY cholecalciferol (vitamin D3) (Vitamin D3) 50 mcg PO DAILY valsartan 160 mg PO DAILY vitamin B complex 1 tab PO DAILY HPI Comments Details: This is an 84-year-old female patient coming in for a follow-up visit. Patient was previously seen in the office for chest discomfort and shortness of breath. At her last visit, patient had reported some palpitations and was recommended [employer] mobile device to trace her rhythm as patient can not tolerate the Holter monitors due to her allergies around the adhesive tape. Today, patient reports ongoing palpitations let us random in nature lasting few secs however denies any exertional symptoms of chest pain, shortness of breath, dizziness, orthopnea, PND, leg edema, presyncope, or syncope associated with this. Patient is stating compliance with the medications. [facility] Medical History Obstructive sleep apnea HTN (hypertension) GERD (gastroesophageal reflux disease) Surgical History H/O excision of ganglion cyst H/O arthroscopic knee surgery History of breast lump/mass excision H/O rectocele repair H/O hemorrhoidectomy Hx of esophagogastroduodenoscopy Hx of colonoscopy Family History Mother Colon cancer Father Mouth cancer Lung cancer Social History Alcohol intake: never Patient Tobacco Use Status: Never used Tobacco Review of Systems Const Denies chills, Denies fatigue, Denies fever(s), Denies frequent falls, Denies weakness, Denies weight gain and Denies weight loss ENT Denies dizziness Card Denies chest pain, Denies leg edema, Denies lightheadedness, Denies palpitations, Denies dyspnea and Denies dyspnea on exertion Resp Denies cough, Denies dyspnea and Denies dyspnea on exertion GI Denies hematochezia Musc Denies abnormal gait, Denies muscle weakness, Denies numbness, Denies radiating pain into limb and Denies tingling Neuro Denies abnormal gait, Denies dizziness, Denies frequent falls, Denies numbness, Denies tingling and Denies weakness Endo Denies fatigue and Denies palpitations Physical Exam Vital Signs: Last Vital Signs Pulse 64 09/25/24 14:38 BP 122/70 09/25/24 14:38 BMI result Body Mass Index 24.3 Const General: cooperative, healthy appearing, comfortable and no acute distress Orientation/consciousness: patient oriented x3 HEENT Head: Yes normal to inspection Neck Neck: Yes normal visual inspection, Yes trachea midline and Yes supple Chest Chest palpation & inspection: normal inspection of the chest Resp Effort & Inspection: normal respiratory effort Auscultation: clear to auscultation bilaterally, no crackles, no rales, no rhonchi and no wheezes Cardio Jugular venous distension: no JVD Palpation: normal PMI Rate: regular rate Rhythm: regular rhythm Heart sounds: S1 normal heart sound present, S2 normal heart sound present, no click, no gallops, no murmurs and no rubs Peripheral pulses: Peripheral pulses 2+ throughout GI Inspection: Yes normal to inspection Palpation (GI): Soft to palpation Auscultation: normal bowel sounds Skin General skin exam: no rashes or lesions noted Neuro General: patient oriented x3 Extrem General: Yes normal to inspection, No no pedal edema and No calf tenderness Psych Appearance: grossly normal Mental Status: mental status grossly normal Speech and movement: Normal speech and movement present Assessment & Plan Assessment & Plan (1) PAC (premature atrial contraction): Code(s): I49.1 - Atrial premature depolarization Category: Medical Plan: 03/31/2023-patient had underwent a stress echo that was normal. For the stress portion, patient had frequent isolated PACs and brief atrial runs. Patient is reporting ongoing palpitations that is infrequent and random in nature lasting couple of sec. back in June, patient was able to record a tracing on her cardia mobile device. Even though her tracing called it AFib, upon review, those are all PACs. Patient states that other than that 1 tracing she has not been able to recorded appropriately as by the time she gets with a cardia mobile, her symptoms have resolved. No true AFib recorded at this time. Discussed in detail about PACs. No current change in medications. (2) Palpitations: Code(s): R00.2 - Palpitations Category: Medical Plan: As above. Clinically stable and without any exertional symptoms of angina. (3) HTN (hypertension): Code(s): I10 - Essential (primary) hypertension Category: Medical Plan: Blood pressure today is well-controlled. Continue amlodipine and valsartan. Advised monitoring blood pressures at home with a goal less than 130/80. Advised heart healthy diet, regular exercise, adequate hydration, med compliance, and avoiding caffeinated beverages. Follow-up in 6 months. In the interim, patient will call the office with any concerns or change in symptoms. This note was generated using voice recognition software. While every effort has been made to ensure accuracy and proper nipple machine operator, there may be occasional errors that could affect the content or meaning of the described symptoms. Coding Level of Care Code Est Pt Level 4 (50098) Complex EM visit Add On G2211 Diagnoses PAC (premature atrial contraction) I49.1 Palpitations R00.2 HTN (hypertension) I10 Time Spent (min) 31 Comment Time spent in reviewing the chart, test results, assessment, counseling and documentation.
[2024-09-25 14:38] VITALS: BP 122/70; PULSE 64; BMI 24.3
--- OUTSIDE RECORDS SUMMARY | 2024-09-25 15:11 | XMS_ITS | Patient Health Record ---
[facility] Address [address] [facility] [place] [address] Care Team Providers Care Tiler Name Role Phone Fili Wright MD Primary Care Provider Jonathan Bunch Unavailable [phone] Allergies Allergen (clinical drug ingredient) Drug/Non Drug [...] BE ADMINISTE RED BY PHARMACIST FOR IMMUNIZATION Intramuscular; Duration: 1 Not-Taking Triamcinolone Acetonide 0.1 % APPLY TWICE A DAY TO AFFECTED AREAS ON LEG FOR 1-2 WKS AT A TIME. DO NOT USE ON FACE OR SKIN FOLDS External; Duration: 20 Not-Taking Halobetasol Propionate 0.05 % USE 1 APPLICATION TO AFFECTED AREA ONCE A DAY EXTERNALLY External; Duration: 15 Not-Taking Night Splint AFO - L1930 as directed 07/22/2021 Active Piroxicam 20 MG 1 capsule with food Orally Once a day; Duration: 30 day(s) 10/09/2013 Not-Taking Restasis 0.05 % INSTILL 1 DROP INTO BOTH EYES TWICE A DAY Ophthalmic; Duration: 90 Not-Taking Physical Therapy . . . 2-3x/week; Duration: 3-4 weeks 07/22/2021 Active Amlodipine & Diet Manage Prod 5mg Active prednisoLONE Acetate 1 % INSTILL 1 DROP INTO BOTH EYES 4 TIMES A DAY FOR 1 MONTH Ophthalmic; Duration: 30 Not-Taking Diovan Not-Taking Ketorolac Tromethamine 0.5 % INSTILL 1 DROP INTO RIGHT EYE TWICE A DAY Ophthalmic; Duration: 30 Not-Taking Aspirin 81 MG 1 tablet Orally Once a day Active HYDROcodone-Acetaminophen 5-325 MG (Schedule II Drug) TAKE 1 OR 2 TABLETS BY MOUTH EVERY 4 HOURS NEEDED FOR PAIN Oral; Duration: 2 Not-Taking methylPREDNISolone 4 MG TAKE DIRECTED ON DOSE PACK Oral; Duration: 6 Not-Taking Vitamin D3 Active Polymyxin B-Trimethoprim 21460-2.1 UNIT/ML INSTILL 1 DROP IN OPERATIVE EYE 3 TIMES A DAY . START 2 DAYS PRIOR TO SURGERY. Ophthalmic; Duration: 66 Not-Taking Vitamin B Complex 100 Active Fluorometholone 0.1 % PLACE 1 DROP INTO EACH EYE 3 TIMES A DAY FOR 1 WEEK Ophthalmic; Duration: 7 Not-Taking Valsartan 160 MG 1 tablet Orally Once a day; Duration: 30 day(s) Active Calcium & Magnesium Carbonates Active Vitamin B 12 Not-Fabian ing Vitamin D Not-Taking amLODIPine Besylate 5 MG 1 tablet Orally Once a day; Duration: 30 day(s) Active Aspirin 81 MG 1 tablet Orally Once a day; Duration: 30 day(s) Active Calcium Magnesium Ac tive Magnesium Aspartate Active Magnesium Aspartate Active Valsartan 160 MG 1 tablet Orally Once a day; Duration: 30 day(s) Active Vitamin B Complex 100 - as directed Injection Active Vitamin D3 25 MCG (1000 UT) 1 capsule Or ally Once a day; Duration: 30 day(s) Active Clindamycin HCl 150 MG TAKE 2 CAPSULES B Y MOUTH NOW 1 EVERY 6 HOURS Oral; Duration: 7 Not-Taking Immunizations Vaccine Route Administration Date Status Comme nts COVID-19 Pfizer BioNTeYeka Vaccine Unknown 01/18/2021 Administered 1st 04/26/20 2nd 05/17/20 Social History Tobacco use other than smoking: Question Answer Notes Are you an other tobacco user? No Problems Problem Type SNOMED Code ICD Code Onset Dates Problem Status W/U Status Risk Notes Problem Acquired hallux valgus (63128535) Hallux valgus (acquired), left foot (M20.12) Active confirmed Problem Localized, primary osteoarthritis of the ankle and/or foot (334188912) Primary osteoarthrit is, left ankle and foot (M19.072) Active confirmed Problem Acquired hallux valgus (03156213) Hallux valgus (acquired), right foot (M20.11) Active confirmed Plan Of Treatment Pending Test Test Name Order Date X ray : Foot, left 2V 10/09/2013 X ray : Foot, right 3V 07/22/202180764, J0702- INJECT or DRAIN, JOINT/BUR SA 04/09/201581601, J0702- INJECT or DRAIN, JOINT/BUR SA 08/04/201669146,[id number] TENDON SHEATH/LIGAMENT 0 10/09/201343628,[id number] TENDON SHEATH/LIGAMENT 0 07/22/2021 Next Appt Details Provider Name:Rachel villeda, 10/18/2024 10:30:00 AM, [address] [place] [address], [phone], Insurance Providers Payer Name Payer Address Payer Phone Subscriber Number Group Number Insured Name Patient Relationship to Insured Coverage Start Date Coverage End Date Medicare National [facility] [employer] [address] [place] [address] [id number] Caryn Juarez Self - patient is the insured [employer] [address] [place] [address] [phone] [id number] Caryn Juarez Self - patient is the insured Medical (General) History Medical History History ICD Code Arthritis Back,Hip,and Knee pain Cataracts Hypertension Chicken pox Neuropathy Measles Surgical History Surgery Date(Month/Year) tonsillectomy 1950 OS cataract surgery 12/2013 OD cataract surgery 12/2014
--- OUTSIDE RECORDS SUMMARY | 2024-09-25 15:11 | XMS_ITS | Clinical Summary ---
Author Organization [facility] Address [address] [place] [address] Care Team Providers Care Quality Systems Engineer Name Role Phone Fili Wright MD Primary Care Provider [phone] Allergies Active Allergy Reactions Criticality Noted Date [...] 1-dose 75+ series) 2017 Influenza Vaccine (#1) 2024 9, 02/14/2018, 12/12/2016, Additional history exists Pneumococcal Vaccine Completed 02/02/2015, 01/12/20 08 Shingrix-Zoster Vaccine Completed 07/16/2018, 04/17 Hepatitis B Vaccines Aged Out No long er eligible based on patient's age to complete this topic RSV Ped < 20 months Aged Out No longe r eligible based on patient's age to complete this topic Care Teams Quality Systems Engineer Relationship Specialty Start Date End Date Fili Wright MD [address] [facility] [place] [address] PCP - General Internal Medicine 08/08/19
--- OUTSIDE RECORDS SUMMARY | 2024-09-25 15:11 | XMS_ITS | Patient Health Record ---
Author Organization [facility] Address [address] [place] [address] Care Team Providers Care Stereotype Caster Name Role Phone Fili Wright MD Primary Care Provider Sea Tristan Unavailable [phone] Allergies Allergen (clinical drug ingredient) Drug/Non Drug Allergy documented on EMR Reaction Allergy Type Onset Date Status ampicillin Ampicillin Unknown Drug Allergy Activ e amoxicillin Amoxicillin Unknown Drug Allergy Act maryuri etodolac lodine (uncoded) Unknown Allergy Act maryuri meclofenamate meclomen (uncoded) Unknown Allergy Active Voltaren Unknown Drug Allergy Active diltiazem Tiazac Unknown Drug Allergy Active erythromycin Erythromycin Unknown Drug Allergy A ctive Reason For Referral No Information Medications Medication SIG (Take, Route, Frequency, Duration) Notes Start Date End Date Status Aspirin 81 MG 1 tablet Orally Once a day Active Calcium & Magnesium Carbonates 311-232 MG Orally Active Vitamin D3 2000 UNIT Orally Active Magnesium Aspartate HCl 615 MG Orally Active Vitamin B Complex 100 mg one Orally daily Active amLODIPine Besylate 5 MG 1 tablet Orally Once a day Active Valsartan 160 MG 1 tablet Orally Once a day Active Immunizations Vaccine Route Administration Date Status Comme nts Flu vaccine no Preserv 3 and > Unknown 01/01/2014 Admin istered Influenza Unknown 12/11/2018 Administered Problems Problem Type SNOMED Code ICD Code Onset Dates Problem Status W/U Status Risk Notes Problem 083331715 Encounter for screening for malignant neoplasm of colon (Z12.11) Active confirmed Problem 633926486 History of adenomatous polyp of colon (Z86.010) Active confirmed Problem 694533149 Family history of colon cancer (Z80.0) Active confirmed Problem 944119573 Long-term use of aspirin therapy (Z79.82) Active confirmed Plan Of Treatment Future Test Test Name Order Date COLONOSCOPY 10/22/2014 COLONOSCOPY 08/13/2019 Insurance Providers Payer Name Payer Address Payer Phone Subscriber Number Group Number Insured Name Patient Relationship to Insured Coverage Start Date Coverage End Date MEDICARE OF [place] [address] [place] [address] [id number] DONNA MEDEIROS Self - patient is the insured [employer] ATT[employer] CLAIMS [address] [place] [address] [id number] DONNA MEDEIROS Self - patient is the insured Medical (General) History Medical History History ICD Code 1 small tubular adenoma debbie shonda in 1999 during her initial screening colonoscopy--she then had negative colonoscopies in 2004 and December 2009, other than the finding of some mild diverticulosis and small internal hemorrhoids. EGD in 2008--small hiatal hernia, no eso phagitis nor Guzman's esophagus GERD, but currently asymptomatic off med ication Hypertension Denies ND,DM,CVA,Lung disease,renal dise ase Negative screening colonoscopy in 2014 Surgical History Surgery Date(Month/Year) Hemorrhoid banding
== END 2024-09-25 15:06 | disposition home or self-care (01) ==
LOC: HO.HCS 14:32
PROVIDERS: PCP Internal Medicine
DX: I49.1 Atrial premature depolarization (principal); R00.2 Palpitations; I10 Essential (primary) hypertension
CPT/HCPCS: 99214; G2211

== ENCOUNTER → 2024-09-25 14:31 | Outpatient (BNVA) | payer MEDICARE, SELFPAY | PROVIDERS: PCP Internal Medicine | DX: I49.1 Atrial premature depolarization (principal); R00.2 Palpitations; I10 Essential (primary) hypertension; Z79.82 Long term (current) use of aspirin; Z79.899 Other long term (current) drug therapy | CPT/HCPCS: 99212 ==

== ENCOUNTER 2025-01-01 13:17 | Outpatient (REF) | payer MEDICARE, SELFPAY ==
--- OUTSIDE RECORDS SUMMARY | 2024-11-30 15:05 | XMS_ITS | Encounter Summary ---
Author Organization [facility] Address [address] [place] [address] [place] [phone] Phone Care Team Providers Care Rolled Gold Plater Name Role Phone Fili Wright MD Primary Care Provider Fili Wright MD Unavailable Fili Wright MD Unavailable Martín Byrd MD Unavailable Unavailable Cristina Perkins MD Unavailable [phone] Moo You MD Unavailable [phone] Martín Ortiz Unavailable Encounter Details Date Type Department Care Team (Late st Contact Info) Description 11/30/2024 3:05 PM EDT Hospital Encounter [facility] [address] [place] [address] Avelino Justin PA-C [address] [place], [place] [id number] Social History Tobacco Use Types Packs/Day Years Used Date Smoking Tobacco: Never Passive Smoke Exposure: Never Smokeless Tobacco: Never Alcohol Use Standard Drinks/Week Comments Never 0 (1 standard drink = 0.6 oz pur e alcohol) Education Answer Date Recorded Are you interested in more education? Not on samir e 07/08/2022 Are you concerned about learning? Not on file 07/08/2022 No 07/08/2022 No 07/08/2022 Digital Access Answer Date Recorded No 08/06/2022 No 08/06/2022 Reliable internet access at home? Not on file 08/06/2022 Device with a working camera? Not on file Intimate Partner Violence Answer Date R ecorded Denied Basic Needs Not on file 05/14/2024 In the past 12 months have y ou been in a relationship with a person who hurts, threatens, or tries to control you? No 05/14/2024 Worried food would run out Not on file 05/14 In the past 12 months have y ou been in a relationship with a person who hurts, threatens, or tries to control you? No 05/14/2024 Comments No Sex and Gender Information Value Date Recorded Sex Assigned at Female 04/05/2020 3:20 PM EST Legal Sex Female 10:10 PM EDT Gender Identity Female 04/05/2020 3:20 PM EST Sexual Orientation Straight 04/05/2020 3: 20 PM EST documented as of this encounter Plan of Treatment Upcoming Encounters Date Type Department Care Team (Late st Contact Info) Description 05/23/2025 1:30 PM EDT Office Visit [facility] [address] [place] [address] Fili Wright MD [address] [place] [phone] [email or web address] documented as of this encounter Procedures Procedure Name Priority Date/Time Associated Diagnosis Comments XR FINGER 2 OR MORE VIEWS (RIGHT) Urgent/patient waiting 11/30/2024 3:14 PM EDT Infected puncture wound of finger, initial encounter documented in this encounter Results * XR FINGER 2 OR MORE VIEWS (RIGHT) (11/30/2024 3:14 PM EDT) Anatomical Region Laterality Modality Hand Right Computed Radiogr aphy 11/30/2024 3:20 PM EDT Impressions 11/30/2024 3:24 PM EDT No fracture. No sign of active osteomyelitis. No radiopaque foreign body. Narrative 11/30/2024 3:24 PM EDT XR FINGER 2 OR MORE VIEWS (RIGHT) Referring clinician's provided indication for this examination in [facility]: Infection; Pain; Mary Jane thorn puncture wound to RMF finger pad 2 days ago with pain and swelling, ?FB COMPARISON: None available FINDINGS: No acute fracture. No cortical destruction or active periosteal reaction. Long finger tip soft tissue swelling. No radiopaque foreign body. First CMC severe osteoarthritis. STT moderate joint space loss. Second MCP moderate joint space loss. 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 Milder appearing osteoarthritis at other joints. Procedure Note Ludin Ortiz MD, MPH - 11/30/2024 XR FINGER 2 OR MORE VIEWS (RIGHT) Referring clinician's provided indication for this examination in [facility]:Infection; Pain; Mary Jane thorn puncture wound to RMF finger pad 2 days agowith pain and swelling, ?FB COMPARISON: None available FINDINGS: No acute fracture. No cortical destruction or active periosteal reaction.Long finger tip soft tissue swelling. No radiopaque foreign body. First CMC severe osteoarthritis. STT moderate joint space loss. Second MCPmoderate joint space loss. Fifth DIP advanced osteoarthritis with erosivefeatures. Milder appearing osteoarthritis at other joints. IMPRESSION: No fracture. No sign of active osteomyelitis. No radiopaque foreignbody. Avelino Justin PA-C IMG XR UPPER EXTREMITY F inal Result documented in this encounter Visit Diagnoses Not on filedocumented in this encounter Additional Health Concerns Assessment Noted Time PHQ-2 Depression Total Score: 0 05/15/19 25 3:41 PM EST documented as of this encounter Care Teams Rolled Gold Plater Relationship Specialty Start Date End Date Fili Wright MD [address] [place] [address] [email or web address] PCP - General 12/29/16 Fili Wright MD [address] [place] [address] Historical LMR Provider 12/31/16 Fili Wright MD [address] [place] [address] [email or web address] Insurance Assigned Provider 06/17/23 Martín Byrd MD [address] [place] [address] Obstetrics and Gynecology 08/02/19 Cristina Perkins MD [address] [place] [address] Otolaryngology 02/10/20 Moo You MD [address] [address] Ophthalmology 02/10/20 Martín Ortiz PA [address] [address] General Surgery 02/10/20 documented as of this encounter Additional Source Comments The information contained in this document represents components of the legal health record. It is not the complete legal health record.[facility]
--- OUTSIDE RECORDS SUMMARY | 2025-01-01 18:42 | XMS_ITS | Patient Health Record ---
Author Organization [facility] Address [address] [place] [address] Care Team Providers Care Wildland Fire Operations Specialist Name Role Phone Fili Wright MD Primary Care Provider Sea Tristan Unavailable [phone] Allergies Allergen (clinical drug ingredient) Drug/Non Drug Allergy documented on EMR Reaction Allergy Type Onset Date Status erythromycin Erythromycin Unknown Drug Allergy A ctive ampicillin Ampicillin Unknown Drug Allergy Activ e amoxicillin Amoxicillin Unknown Drug Allergy Act maryuri etodolac lodine (uncoded) Unknown Allergy Act maryuri meclofenamate meclomen (uncoded) Unknown Allergy Active Voltaren Unknown Drug Allergy Active diltiazem Tiazac Unknown Drug Allergy Active Reason For Referral No [...] Problem Status W/U Status Risk Notes Problem Screening for malignant neoplasm of colon (765918493) Encounter for screening for malignant neoplasm of colon (Z12.11) Active confirmed Problem History of adenomatous polyp of colon (391508538) History of adenomatous polyp of colon (Z86.010) Active confirmed Problem Family History of Cancer of Colon (Situation) (405098173) Family history of colon cancer (Z80.0) Active confirmed Problem Long-term current use of antiplatelet drug (421195186356396 ) Long-term use of aspirin therapy (Z79.82) Active confirmed Plan Of Treatment Future Test Test Name Order Date COLONOSCOPY 10/22/2014 COLONOSCOPY 08/13/2019 Insurance Providers Payer Name Payer Address Payer Phone Subscriber Number Group Number Insured Name Patient Relationship to Insured Coverage Start Date Coverage End Date [place]ARE [place] [address] [place] [address] [id number] DONNA MEDEIROS Self - patient is the insured [employer] ATT[employer] CLAIMS [address] [place] [address] [id number] DONNA MEDEIROS Self - patient is the insured Medical (General) History Medical History History ICD Code 1 small tubular adenoma debbie guerrad in 1999 during her initial screening colonoscopy--she then had negative colonoscopies in 2004 and December 2009, other than the finding of some mild diverticulosis and small internal hemorrhoids. EGD in 2008--small hiatal hernia, no eso phagitis nor Guzman's esophagus GERD, but currently asymptomatic off med ication Hypertension Denies MT,DM,CVA,Lung disease,renal dise ase Negative screening colonoscopy in 2014 Surgical History Surgery Date(Month/Year) Hemorrhoid banding
--- OUTSIDE RECORDS SUMMARY | 2025-01-01 18:42 | XMS_ITS | Clinical Summary ---
Author Organization Formerly [facility] Address [address] [place] [address] Phone Care Team Providers Care Beauty Culturist Apprentice Name Role Phone Fili Wright MD Primary Care Provider Fili Wright MD Unavailable [phone] Fili Wright MD Unavailable [phone] Martín Byrd MD Unavailable Unavailable Cristina Perkins MD Unavailable [phone] Moo You MD Unavailable Martín Ortiz Unavailable Allergies Active Allergy Reactions Criticality Noted Date Comments Adhesive Rash Low 07/22/2021 itchy Amoxicillin Hives 01/26/2017 Erythromycin Hives 01/26/2017 Etodolac GI Upset 01/26/2017 Meclomen Hives 02/01/2019 Olmesartan Palpitations Low 05/14/2021 Polymyxin B Sulf-Trimethoprim Unknown 2016 eye drops Diltiazem Hcl Maculopapular Rash 01/26/2017 Trimethoprim Itching 02/01/2019 Diclofenac Sodium Unknown 01/26/2017 Medications aspirin 81 mg chewable tablet Take 81 mg by mouth daily. Active CALCIUM CARB/MAGNESIUM CARB (CALCIUM & MAGNESIUM CARBONATES ORAL) Take 1 tablet by mouth 2 (two) times a day. Active VITAMIN B COMPLEX VIT C NO.4 (SUPER B COMPLEX + C ORAL) Take 1 capsule by mouth daily. Active cholecalciferol (VITAMIN D3) 1,000 unit tablet Take 1,000 Units by mouth daily. Active halobetasol (ULTRAVATE) 0.05 % creamIndications :Rash and other nonspecific skin eruption Apply 1 application topically daily as needed. 30 g 1 2 Active MAGNESIUM ORAL Take 200 mg by mouth 3 (three) times a week. Active amLODIPine (NORVASC) 2.5 MG tablet TAKE 1 TABLET BY MOUTH EVERY DAY 90 tablet 3 4 Active valsartan (DIOVAN) 160 MG tabletIndication s:Essential hypertension Take 1 tablet (160 mg total) by mouth daily. 90 tablet 3 5 Active estradioL (ESTRACE) 0.01 % (0.1 mg/gram) vaginal cream Apply 0.5 g to the vaginal opening nightly for one to two weeks, then twice weekly. 42.5 g 1 5 Active triamcinolone acetonide 0.1 % ointmentIndicati ons:Vulvar irritation Apply a thin film to affected area twice weekly 30 g 5 Active doxycycline monohydrate (MONODOX) 100 MG capsule Take 1 capsule (100 mg total) by mouth 2 (two) times a day for 7 days. 14 capsule 5 025 Active Problems Problem Noted Date Diagnosed Date Osteopenia 12/06/2023 Overview (12/06/2023): BMD done + osteopenia 11/07/23 pt aware per PB note Arthritis 07/30/2018 Neuropathy of both feet 01/30/2018 Overview (01/30/2018): ankles to feet Essential hypertension 01/26/2017 Hyperlipidemia 01/26/2017 Obstructive sleep apnea syndrome 01/26/2017 Resolved Problems Problem Noted Date Diagnosed Date Resolved Date Hypertension 01/26/2017 07/30/2024 Pure hypercholesterolemia 01/26/2017 Sleep apnea 01/26/2017 07/30/2024 Thrombocytopenia 01/26/2017 07/30/2024 Encounters Date Type Department Care Team Description 12/31/2024 Orders Only [facility] Internal Medicine [address] [place] [address] ProviderJoshua MD 12/19/2024 Patient Outreach [facility] Internal Medicine [address] [place] [address] Loren Sanders E Care Coordination 12/12/2024 8:03 AM EDT - 12/12/2024 11:59 PM EDT Hospital Encounter [facility] [address] [place] [address] Fili Wright MD Discharge Disposition: Home or Self Care 11/30/2024 3:05 PM EDT Hospital Encounter [facility] [address] [place] [address] Avelino Justin PA-C 11/30/2024 3:00 PM EDT Office Visit [facility] Care at [address] [address] Avelino Justin PA-C Infected puncture wound of finger, initial encounter (Primary Dx) 11/29/2024 Telephone [facility] Internal Medicine [address] [place] [address] Fili Wright MD Finger Injury 11/25/2024 1:00 PM EDT Office Visit [facility] Internal [facility] [address] [place] [address] Fili Wright MD Need for influenza vaccination (Primary Dx); Tremor of both hands; Essential hypertension; Thrombocytopenia; Impaired fasting glucose; Bilateral hearing loss, unspecified hearing loss type from Last 3 Months Immunizations Immunization Administration Dates Next Due COVID-19 (Pre-01/02) Pfizer Vaccine, mRNA, PF 01/18/2021,05/17/2020,04/26/2020 [id number] FORMULATION 03/13/2009 INFLUENZA, SPLIT VIRUS, TRIV ALENT W/ PRESERVATIVE IM 12/02/2011 Influenza High-Dose Quadriva lent Preservative Free IM 12/11/2021,01/03/2021,11/28/2019 Influenza High-Dose Trivalen t Preservative Free IM 11/17/2023,12/13/2018,02/14/2018,12/12,11/20/2015,01/15/2015,01/09/2014 ,01/08/2013 Influenza Quadrivalent Prese rvative Free IM 01/19/2023 Influenza, Unspecified Formulation 02/14/2018,,12/29/2009 PPD Test 01/11/2010 Pneumococcal conjugate PCV13 02/02/2015 Pneumococcal polysaccharide PPSV23 01/12/2008 Td (adult) 5 Lf Tetanus Toxo id, PF, Adsorbed 02/10/2020,01/11/2009 Zoster live 02/10/2010 Zoster recombinant 07/16/2018,04/17/2018 Family History Medical History Relation Comments Diabetes Brother Parkinson's disease Daughter 1 Goiter Daughter 2 Colon cancer Mother Diabetes Mother Diabetes Sister Relation Status Comments Brother Daughter 1 Alive Daughter 2 Alive Father Mother Sister Son Alive Social History Tobacco Use Types Packs/Day Years Used Date Smoking Tobacco: Never Passive Smoke Exposure: Never Smokeless Tobacco: Never Tobacco Cessation:Counseling Given: Not Answered Alcohol Use Standard Drinks/Week Comments Never 0 [...] Orientation Straight 04/05/2020 3: 20 PM EST Last Filed Vital Signs Vital Sign Reading Time Taken Comments Blood Pressure 146/75 12/25/2024 5:33 PM EDT pt reported bp via gw Pulse 75 11/30/2024 3:00 PM EDT Temperature 37.2 C (98.9 F) 11/30/2024 3:00 PM EDT Respiratory Rate 16 11/30/2024 3:00 PM EDT Oxygen Saturation 97% 11/30/2024 3:0 0 PM EDT Inhaled Oxygen Concentration - - Weight 58.5 kg (129 lb) 11/30/2024 3:00 PM EDT patient reported Height 154.9 cm (5' 1 ) 11/30/2024 3:00 PM EDT patient reported Body Mass Index 24.37 11/30/2024 3:00 PM EDT Plan of Treatment Upcoming Encounters Date Type Department Care Team (Late st Contact Info) Description 05/23/2025 1:30 PM EDT Office Visit [facility] Internal Medicine [address] [place] [address] Fili Wright MD [address] [place] [address] [email or web address] Health Maintenance Due Date Last Done Comments RSV VACCINE (1 - 1-dose 75+ series) 2017 INFLUENZA VACCINE (#1) 2024 , 01/19/2023, 12/11/2021, Additional history exists COVID-19 VACCINE (2024- season) 2024 01/18/2021, 05/17/2020, 04/26/2020 DEPRESSION SCREENING 05/14/2025 05/14/2024 BLOOD PRESSURE 06/25/2025 12/25/2024 FOLLOW UP BONE DENSITY TESTING 11/06/2025 11/07/2023, 05/16/2023, 06/01/2021, Additional history exists CREATININE LEVEL 12/12/2025 12/12/2024, 11/2024, 01/17/2024, Additional history exists POTASSIUM LEVEL 12/12/2025 12/12/2024, 11/2024, 01/17/2024, Additional history exists MAMMOGRAM 12/18/2025 12/18/2024, 10/2023, 12/14/2022, Additional history exists Adult Td,Tdap Booster 02/09/2030 02/10/2020, 009 PNEUMOCOCCAL VACCINES (50+ years) Completed 02/02/2015, 01/12/2008 ZOSTER VACCINES Completed 07/16/2018, 07/2018, 02/10/2010 OSTEOPOROSIS SCREENING INITIAL (ONE-TIME) Completed 11/07/2023, 05/16/2023, 06/01/2021, Additional history exists HEPATITIS A VACCINES Aged Out No long er eligible based on patient's age to complete this topic HIB VACCINES Aged Out No longer eligi ble based on patient's age to complete this topic MENINGOCOCCAL VACCINES (ACWY) Aged Out No longer eligible based on patient's age to complete this topic MENINGOCOCCAL VACCINES (B) Aged Out N o longer eligible based on patient's age to complete this topic Medical Devices Not on file Procedures Procedure Name Priority Date/Time Associated Diagnosis Comments MAMMOGRAPHY Routine 12/18/2024 1:36 PM EDT CBC AND DIFFERENTIAL Routine 12/12/2024 8:10 AM EDT Essential hypertension HEMOGLOBIN A1C Routine 12/12/2024 8:10 AM EDT Impaired fasting glucose BASIC METABOLIC PANEL Routine 12/12/2024 8:10 AM EDT Essential hypertension Impaired fasting glucose XR FINGER 2 OR MORE VIEWS (RIGHT) Urgent/patient waiting 11/30/2024 3:14 PM EDT Infected puncture wound of finger, initial encounter DEXA SCAN Routine 11/07/2023 10:46 AM EDT from Last 3 Months or Most Recently Relevant to Health Maintenance Results * MAMMOGRAPHY FOR RESULT ENTRY ONLY (12/18/2024 1:36 PM EDT) us Historical Provider HEALTH MAINTENANCE Final Result * (ABNORMAL) CBC and differential (12/12/2024 8:10 AM EDT) WBC 5.25 4.00 - 11.00 K/uL [facility] RBC 4.47 4.00 - 5.20 M/uL [facility] HGB 13.4 12.0 - 16.0 g/dL [facility] HCT 42.4 36.0 - 46.0 % [facility] PLT 114(L) 150 - 450 K/uL [facility] MCV 94.9 80.0 - 100.0 fL [facility] MCH 30.0 27.0 - 31.0 pg [facility] MCHC 31.6(L) 32.0 - 36.0 g/dL [facility] RDW 14.2 11.5 - 14.5 % [facility] MPV 11.7 8.4 - 12.0 fL [facility] NRBC 0.00 0.00 /100 WBCs [facility] ABSOLUTE NRBC 0.00 0.00 K/uL [facility] DIFF METHOD Auto [facility] NEUTS 45.1(L) 48.0 - 76.0 % [facility] LYMPHS 40.6 18.0 - 41.0 % [facility] MONOS 10.1 4.0 - 11.0 % [facility] EOS 3.0 0.0 - 5.0 % [facility] BASOS 1.0 0.0 - 1.5 % [facility] Granulocytes, immature (%) 0.2 0.0 - 0.9 % [facility] ABSOLUTE NEUTS 2.37 1.92 - 7.60 K/uL [facility] ABSOLUTE LYMPHS 2.13 0.72 - 4.10 K/uL [facility] ABSOLUTE MONOS 0.53 0.16 - 1.10 K/uL [facility] ABSOLUTE EOS 0.16 0.00 - 0.50 K/uL [facility] ABSOLUTE BASOS 0.05 0.00 - 0.15 K/uL [facility] Granulocytes, immature 0.01 0.00 - 0.09 K/uL [facility] Blood 12/12/2024 8:10 AM EDT 12/12/2024 8:19 AM EDT us Fili Wright MD LAB BLOOD ORDERABLES Final Re sult Performing Organization Address City/[facility]/ZIP Co de Phone Number [address] [address] * Hemoglobin A1c (12/12/2024 8:10 AM EDT) HEMOGLOBIN A1C 5.7 4.3 - 5.8 % [facility] Blood 12/12/2024 8:10 AM EDT 12/12/2024 8:19 AM EDT us Fili Wright MD LAB BLOOD ORDERABLES Final Re sult Performing Organization Address [facility] Co de Phone Number [address] [address] * (ABNORMAL) Basic metabolic panel (12/12/2024 8:10 AM EDT) SODIUM 140 133 - 146 mmol/L [facility] CHLORIDE 103 96 - 108 mmol/L [facility] POTASSIUM 4.3 3.3 - 5.1 mmol/L [facility] CO2 28 21 - 35 mmol/L [facility] BUN 22(H) 6 - 19 mg/dL [facility] CREATININE 0.60 0.5 - 1.5 mg/dL [facility] GLUCOSE 90 70 - 99 mg/dL [facility] CALCIUM 9.8 8.4 - 10.3 mg/dL [facility] EGFR 90 >59 mL/min/1.7 3m2 [facility] Comment:Estimated glomerular filtration rate calculated using the CKD-EPI refit equation. ANION GAP 13 10 - 20 mmol/L [facility] Blood 12/12/2024 8:10 AM EDT 12/12/2024 8:19 AM EDT us Fili Wright MD LAB BLOOD ORDERABLES Final Re sult [facility] [address] [place] [address] * XR FINGER 2 OR MORE VIEWS (RIGHT) (11/30/2024 3:14 PM EDT) Anatomical Region Laterality Modality Hand Right Computed Radiogr aphy 11/30/2024 3:20 PM EDT Impressions 11/30/2024 3:24 PM EDT No fracture. No sign of active osteomyelitis. No radiopaque foreign body. Narrative 11/30/2024 3:24 PM EDT XR FINGER 2 OR MORE VIEWS (RIGHT) Referring clinician's provided indication for this examination in [facility]: Infection; Pain; Mary Jane thorn puncture [...] clinician's provided indication for this examination in [facility]:Infection; Pain; Mary Jane thorn puncture wound [...] sign of active osteomyelitis. No radiopaque foreignbody. us Avelino Justin PA-C IMG XR UPPER EXTREMITY F inal Result * HM DEXA SCAN (11/07/2023 10:46 AM EDT) us Fili Wright MD HEALTH MAINTENANCE Edited Res ult - Final from Last 3 Months or Most Recently Relevant to Health Maintenance Insurance MEDICARE PART A & B [employer] SUPPLEMENT MEDICARE PART A & B [employer] SUPPLEMENT MEDICARE PART A & B [employer] CROSS MEDEX SUPPLEMENT MEDICARE PART A & B [employer] SUPP[employer]MENT MEDICARE PART A & B [employer] SU[employer]MENT MEDICARE PART A & B [employer] MEDICARE PART A & B [employer] SU[employer] MEDICARE PART A & B [employer] SU[employer]MENT MEDICARE PART A & B [employer] SUPPLEMENT Advance Directives For more information, please contact: [phone] (9AM - 5PM [facility], Monday-Monday) Documents on File Type Date Recorded Patient Director Of Informatics Expl [facility] Healthcare Proxy 08/27/2019 [facility] care Proxy 08/18/19 Care Teams Beauty Culturist Apprentice Relationship Specialty Start Date End Date Fili Wright MD [address] [place] [address] PCP - General 12/29/16 Fili Wright MD [address] [place] [address] Historical LMR Provider 12/31/16 Fili Wright MD [address] [place] [address] Insurance Assigned Provider 06/17/23 Martín Byrd MD [address] [place], [place] Obstetrics and Gynecology 08/02/19 Cristina Perkins MD [address] [place] [address] Dr J[facility] [place], [place] [phone] Otolaryngology 02/10/20 Moo You MD [address] [place] [phone] Ophthalmology 02/10/20 Martín Ortiz PA [address] [place] [phone] General Surgery 02/10/20 Additional Source Comments The information contained in this document represents components of the legal health record. It is not the complete legal health record.[facility]ly [facility]
--- OUTSIDE RECORDS SUMMARY | 2025-01-01 18:43 | XMS_ITS | Encounter Summary ---
Author Organization [facility] Address [address] [place] [address] [place] [address] Phone Care Team Providers Care Sales And Catering Coordinator Name Role Phone Fili Wright MD Primary Care Provider [phone] Fili Wright MD Unavailable [phone] Fili Wright MD Unavailable [phone] Martín Byrd MD Unavailable Unavailable Cristina Perkins MD Unavailable Moo You MD Unavailable Martín Ortiz Unavailable Encounter Details Date Type Department Care Team (Late st Contact Info) Description 12/31/2024 Orders Only [facility] Internal Medicine [address] [place] [address] Provider, MD Joshua [address] [place] [address] Social History Tobacco Use Types Packs/Day Years [...] Description 05/23/2025 1:30 PM EDT Office Visit [facility] Internal Medicine [address] [place] [address] Fili Wright MD [address] [place] [address] [email or web address] documented as of this encounter Procedures Procedure Name Priority Date/Time Associated Diagnosis Comments HM MAMMOGRAPHY Routine 12/18/2024 1:36 PM EDT documented in this encounter Results * HM MAMMOGRAPHY FOR RESULT ENTRY ONLY (12/18/2024 1:36 PM EDT) us Historical Provider HEALTH MAINTENANCE Final Result documented in this encounter Visit Diagnoses Not on filedocumented in this encounter Additional Health Concerns Assessment Noted Time PHQ-2 Depression Total Score: 0 05/15/19 25 3:41 PM EST documented as of this encounter Care Teams Sales And Catering Coordinator Relationship Specialty Start Date End Date Fili Wright MD [address] [place] [address] [email or web address] PCP - General 12/29/16 Fili Wright MD [address] [place] [address] Historical LMR Provider 12/31/16 Fili Wright MD [address] [place] [address] [email or web address] Insurance Assigned Provider 06/17/23 Martín Byrd MD [address] [place] [address] Obstetrics and Gynecology 08/02/19 Cristina Perkins MD [address] [place] [address] Otolaryngology 02/10/20 Moo You MD [address] [phone] Ophthalmology 02/10/20 Martín Ortiz PA [address] [phone] General Surgery 02/10/20 documented as of this encounter Additional Source Comments The information contained in this document represents components of the legal health record. It is not the complete legal health record.[facility]
--- OUTSIDE RECORDS SUMMARY | 2025-01-01 18:43 | XMS_ITS | Patient Health Record ---
Author Organization [facility] Address [address] [place] [address] Care Team Providers Care Hide Splitter Name Role Phone Fili Wright MD Primary Care Provider Rachel Moran Unavailable [phone] Allergies Allergen (clinical drug ingredient) Drug/Non Drug [...] 1 tablet Orally Once a day Active Restasis 0.05 % INSTILL 1 DROP INTO BOTH EYES TWICE A DAY Ophthalmic; Duration: 90 Not-Taking Valsartan 160 MG 1 tablet Orally Once a day; Duration: 30 day(s) Active Halobetasol Propionate 0.05 % USE 1 APPLICATION TO AFFECTED AREA ONCE A DAY EXTERNALLY External; Duration: 15 Not-Taking Vitamin B Complex 100 Active Triamcinolone Acetonide 0.1 % APPLY TWICE A DAY TO AFFECTED AREAS ON LEG FOR 1-2 WKS AT A TIME. DO NOT USE ON FACE OR SKIN FOLDS External; Duration: 20 Not-Taking Vitamin D3 Active Fluzone High-Dose 0.5 ML TO BE ADMINISTE RED BY PHARMACIST FOR IMMUNIZATION Intramuscular; Duration: 1 Not-Taking Estradiol 0.1 MG/GM APPLY 1/2 GRAM TO TH E VAGINAL OPENING NIGHTLY FOR ONE TO TWO WEEKS, THEN TWICE WEEKLY. Vaginal; Duration: 30 Days Active Calcium Magnesium Ac tive amLODIPine Besylate 2.5 MG 1 tablet Oral ly Once a day; Duration: 30 days Active prednisoLONE Acetate 1 % INSTILL 1 DROP INTO BOTH EYES 4 TIMES A DAY FOR 1 MONTH Ophthalmic; Duration: 30 Not-Taking OT Refurbishment 10/18/2024 Ac tive Piroxicam 20 MG 1 capsule with food Orally Once a day; Duration: 30 day(s) 10/09/2013 Not-Taking Clindamycin HCl 150 MG TAKE 2 CAPSULES B Y MOUTH NOW 1 EVERY 6 HOURS Oral; Duration: 7 Not-Taking Vitamin D Not-Taking Vitamin B 12 Not-Fabian ing Diovan Not-Taking Vitamin D3 25 MCG (1000 UT) 1 capsule Or ally Once a day; Duration: 30 day(s) Not-Taking Vitamin B Complex 100 - as directed Injection Not-Taking Valsartan 160 MG 1 tablet Orally Once a day; Duration: 30 day(s) Not-Taking Magnesium Aspartate Not-Taking Physical Therapy . . . 2-3x/week; Duration: 3-4 weeks 07/22/2021 Not-Taking Night Splint AFO - L1930 as directed 07/22/2021 Not-Taking HYDROcodone-Acetaminophen 5-325 MG (Schedule II Drug) TAKE 1 OR 2 TABLETS BY MOUTH EVERY 4 HOURS NEEDED FOR PAIN Oral; Duration: 2 Not-Taking Ketorolac Tromethamine 0.5 % INSTILL 1 DROP INTO RIGHT EYE TWICE A DAY Ophthalmic; Duration: 30 Not-Taking Aspirin 81 MG 1 tablet Orally Once a day; Duration: 30 day(s) Not-Taking Triamcinolone Acetonide 0.1 % APPLY A THIN FILM TO AFFECTED AREA TWICE WEEKLY External; Duration: 14 Days Active Magnesium Aspartate Not-Taking Fluorometholone 0.1 % PLACE 1 DROP INTO EACH EYE 3 TIMES A DAY FOR 1 WEEK Ophthalmic; Duration: 7 Not-Taking Calcium & Magnesium Carbonates Not-Taking Polymyxin B-Trimethoprim 97403-9.1 UNIT/ML INSTILL 1 DROP IN OPERATIVE EYE 3 TIMES A DAY . START 2 DAYS PRIOR TO SURGERY. Ophthalmic; Duration: 66 Not-Taking Amlodipine & Diet Manage Prod 5mg Not-Taking methylPREDNISolone 4 MG TAKE DIRECTED ON DOSE PACK Oral; Duration: 6 Not-Taking Immunizations Vaccine Route Administration Date Status Comme nts Influenza Unknown 11/12/2023 Administered COVID-19 Pfizer BioNTech Vaccine Unknown 01/18/2021 Administered 1st 04/26/20 2nd 05/17/20 Social History Tobacco Use: Social History Observation Description Date Details (start date - stop date) Never Smoker NA - NA Tobacco use other than smoking: Question Answer Notes Are you an other tobacco user? No Tobacco Control (Standard) Question Answer Notes Tobacco use: Nonsmoker Additional Findings: Tobacco non-user Current no nsmoker AUDIT-C (Standard) Question Answer Notes Did you have a drink containing alcohol in the p ast year? No Points 0 Interpretation Negative Problems Problem Type SNOMED Code ICD Code Onset Dates Problem Status W/U Status Risk Notes Problem Acquired hallux valgus (60026955) Hallux valgus (acquired), left foot (M20.12) Active confirmed Problem Localized, primary osteoarthritis of the ankle and/or foot (955146547) Primary osteoarthrit is, left ankle and foot (M19.072) Active confirmed Problem Acquired hallux valgus (27764009) Hallux valgus (acquired), right foot (M20.11) Active confirmed Vital Signs Blood pressure diastolic 80 mm Hg 10/18/2024 Height 5'1 in 10/18/2024 Blood pressure systolic 132 mm Hg 10/18/2024 Weight 125 lbs 10/18/2024 BMI 23.62 kg/m2 10/18/2024 Encounters Encounter Location Date Provider Diagnosis [facility] [place] [address] [place] [address] 10/18/2024 Rachel Perica Pain in left foot M79.672 ; Stress fracture, left foot, initial encounter for fracture M84.375A ; Pain in left ankle and joints of left foot M25.572 ; Bursitis of intermetatarsal bursa of left foot M77.52 ; Metatarsalgia, left foot M77.42 ; Flat foot [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), right foot M21.41 ; Flat foot [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), left foot M21.42 ; Primary osteoarthritis, left ankle and foot M19.072 and Hallux valgus (acquired), left foot M20.12 Assessments Encounter Date Diagnosis (ICD Code) Assessment Notes Treatment Notes Treatment Clinical Notes Section Notes 10/18/2024 Stress fracture, left foot, initial encounter for fracture (ICD-10 - M84.375A) 10/18/2024 Pain in left foot (ICD-10 - M79.672) 10/18/2024 Pain in left ankle and joints of left foot (ICD-10 - M25.572) 10/18/2024 Bursitis of intermetatarsal bursa of left foot (ICD-10 - M77.52) 10/18/2024 Metatarsalgia, left foot (ICD-10 - M77.42) 10/18/2024 Flat foot [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), right foot (ICD-10 - M21.41) 10/18/2024 Flat foot [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), left foot (ICD-10 - M21.42) 10/18/2024 Primary osteoarthritis, left ankle and foot (ICD-10 - M19.072) 10/18/2024 Hallux valgus (acquired), left foot (ICD-10 - M20.12) Plan Of Treatment Pending Test Test Name Order Date X ray : Foot, left 2V 10/09/2013 X ray : Foot, left 3V 10/18/2024 X ray : Foot, right 3V 07/22/2021 [id number], [id number]- INJECT or DRAIN, JOINT/BUR SA 04/09/2015 [id number], J0702- INJECT or DRAIN, JOINT/BUR SA 08/04/2016 [id number] TENDON SHEATH/LIGAMENT 0 10/09/2013 [id number] TENDON SHEATH/LIGAMENT 0 07/22/2021 Insurance Providers Payer Name Payer Address Payer Phone Subscriber Number Group Number Insured Name Patient Relationship to Insured Coverage Start Date Coverage End Date Medicare National [employer] [address] [facility] [place] [address] [id number] Caryn Juarez Self - patient is the insured 8 [employer] [address] [place] [address] [phone] [id number] Caryn Juarez Self - patient is the insured Medical (General) History Medical History History ICD Code Arthritis Back,Hip,and Knee pain Cataracts Hypertension Chicken pox Neuropathy Measles Surgical History Surgery Date(Month/Year) tonsillectomy 1950 OS cataract surgery 12/2013 OD cataract surgery 12/2014
--- OUTSIDE RECORDS SUMMARY | 2025-01-01 18:43 | XMS_ITS | Clinical Summary ---
Author Organization [facility] Address [address] [place] [address] Care Team Providers Care Business Control Manager Name Role Phone Fili Wright MD Primary Care Provider [phone] Allergies Active Allergy Reactions Criticality Noted Date [...] age to complete this topic Care Teams Business Control Manager Relationship Specialty Start Date End Date Fili Wright MD [address] [facility] [place] [address] PCP - General Internal Medicine 08/08/19
--- OUTSIDE RECORDS SUMMARY | 2025-01-01 18:43 | XMS_ITS ---
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 This is an 84 year old female who is an established patient who is being seen for an evaluation of skin lesions, located on the body throughout. She also presents for education and counseling about sun exposure, evaluation for suspicious growths, and evaluation of current nevi. She has no familyhistory of melanoma. Rough spot on her left hairline since October. Bumps on left elbow that are itchy since August has not applied anything to this. Recheck mole on her mid back asymptomatic. Recheck cyst left axilla asymptomatic. Red rash comes and goes not present today but has a photo as what it looked like 3 weeks ago on both legs. 2. This is an 84 year old female who is following up for eczema (Other atopic dermatitis). She was seen on December 26, 2023, at which time the following treatment recommendations were given: Continuethe following treatments: She will continue to use halobetasol as needed for flares.The patient presents for further evaluation and management.Today the patient reports: Modifying factors: better with medication.The patient followed the treatment plan as directed.Interval History: Applies halobetasol as needed for flares. Allergies, Adverse Reactions, Alerts Substance RxNorm Reaction(s) Severity Status Start Da te amoxicillin 723 unspecified active Tiazac 812118 unspecified active Voltaren 269881 unspecified active ampicillin 733 unspecified active erythromycin base 4053 unspecified active erythromycin base Hives unspecified active 10/29/2019 Medications Medication Generic Name RxNorm Strength Strength Unit Route Dose Dose Form Frequency Date Started Date Ended Status Indication Sig halobetasol propionate halobeta deion propiona te 0.05 % Topica l 1 cream bid suspend ed triamcinolo ne acetonide triamcin olone acetonid e 7512168 0.1 % Topica l cream 10/29/19 20 suspend ed Appl y bid to affe cted area s for 1-2 week s at a time for flar es. Do not use on face or skin fold s. triamcinolo ne acetonide triamcin olone acetonid e 0.1 % Topica l cream twice weekly active Adult Low Dose Aspirin aspirin 156773 81 mg Oral 1 table t, delay ed relea se (ente angela coate d) qd 01/20/20 06 active amlodipine amlodipi ne 571108 2.5 mg Oral 1 table t qd 08/03/19 17 active calcium-mag nesium calcium- magnesiu m 300-300 mg Oral 2 table t qd active magnesium magnesiu m 200 mg Oral 1 table t qd active valsartan valsarta n 024993 160 mg Oral 1 table t qd 08/03/19 17 active Vitamin D3 cholecal ciferol (vitamin D3) 25 mcg (1,000 unit) Oral 1 capsu le qd active Vitamins B Complex vitamin B complex 100 mg Oral 1 table t qd active estradiol estradio l 0.01 % (0.1 mg/gram) Vagina l cream twice weekly active Amlodipine Besy-Benaze pril HCl NULL 0 10 suspend ed Clindamycin HCl NULL 07/26/19 18 active Diovan NULL 01/20/20 06 suspend ed Gabapentin NULL 07/26/19 18 suspend ed Halobetasol Propionate NULL 08/02 17 active Norvasc NULL 01/20/20 06 active OXcarbazepi ne NULL 07/26/19 18 suspend ed Prilosec NULL 03/15/19 08 suspend ed Triamcinolo ne Acetonide NULL 17 suspend ed Ultravate NULL 01/20/20 06 active Problems Problem Code Type Status Date of Diagnosis Date of Resolution Atopic dermatitis (disorder) 86338572(SN OMED) Diagnosis active 12/31/2024 Paresthesia (finding) 99841838(SN OMED) Diagnosis active 12/31/2024 Melanocytic nevus (disorder) 726652669(S NOMED) Diagnosis active 12/31/2024 Seborrheic keratosis (disorder) 714395302(S NOMED) Diagnosis active 12/31/2024 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( SNOMED) Diagnosis active 12/31/2024 Disorder of pigmentation (disorder) 522797072(S NOMED) Diagnosis active 12/31/2024 Epidermoid cyst of skin (disorder) 902167358(S NOMED) Diagnosis active 12/31/2024 Atopic dermatitis (disorder) 52335766(SN OMED) Diagnosis active 12/26/2023 Paresthesia (finding) 84067173(SN OMED) Diagnosis active 12/26/2023 Melanocytic nevus (disorder) 720758082(S NOMED) Diagnosis active 12/26/2023 Seborrheic keratosis (disorder) 186535866(S NOMED) Diagnosis active 12/26/2023 Pigmented purpuric dermatosis (disorder) 1704466665( SNOMED) Diagnosis active 12/26/2023 Disorder of pigmentation (disorder) 639629648(S NOMED) Diagnosis active 12/26/2023 Epidermoid cyst of skin (disorder) 003498524(S NOMED) Diagnosis active 12/26/2023 Atopic dermatitis (disorder) 49446768(SN OMED) Diagnosis active 12/13/2022 Melanocytic nevus (disorder) 671742850(S NOMED) Diagnosis active 12/13/2022 Seborrheic keratosis (disorder) 099400970(S NOMED) Diagnosis active 12/13/2022 Pigmented purpuric dermatosis (disorder) 8655078546( SNOMED) Diagnosis active 12/13/2022 Disorder of pigmentation (disorder) 548373302(S NOMED) Diagnosis active 12/13/2022 Epidermoid cyst of skin (disorder) 029201811(S NOMED) Diagnosis active 12/13/2022 Atopic dermatitis (disorder) 37769279(SN OMED) Diagnosis active 11/23/2021 Melanocytic nevus (disorder) 921032597(S NOMED) Diagnosis active 11/23/2021 Seborrheic keratosis (disorder) 936168582(S NOMED) Diagnosis active 11/23/2021 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) 48431078(SN OMED) Diagnosis active 11/23/2021 Disorder of pigmentation (disorder) 484063709(S NOMED) Diagnosis active 11/23/2021 Neoplasm of uncertain behavior of skin (disorder) 71404518(SN OMED) Diagnosis active 11/03/2020 Atopic dermatitis (disorder) 69889450(SN OMED) Diagnosis active 11/03/2020 Melanocytic nevus (disorder) 955273852(S NOMED) Diagnosis active 11/03/2020 Seborrheic keratosis (disorder) 000783175(S NOMED) Diagnosis active 11/03/2020 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) 14128243(SN OMED) Diagnosis active 11/03/2020 Disorder of pigmentation (disorder) 244361510(S NOMED) Diagnosis active 11/03/2020 Intrinsic (allergic) eczema L20.84(ICD- 10) Diagnosis active 10/29/2019 Melanocytic nevi, unspecified D22.9(ICD-1 0) Diagnosis active 10/29/2019 Other seborrheic keratosis L82.1(ICD-1 0) Diagnosis active 10/29/2019 Pigmented purpuric dermatosis L81.7(ICD-1 0) Diagnosis active 10/29/2019 Other acne L70.8(ICD-1 0) Diagnosis active 10/29/2019 Hemangioma of skin and subcutaneous tissue D18.01(ICD- 10) Diagnosis active 10/29/2019 Other melanin hyperpigmentation L81.4(ICD-1 0) Diagnosis active 10/29/2019 Senile hyperkeratosis (disorder) 275392123(S NOMED) Diagnosis active 07/24/2018 Other specified health status Z78.9(ICD-1 0) Diagnosis active 07/25/2017 Other specified health status Z78.9(ICD-1 0) Diagnosis active 07/25/2017 Senile hyperkeratosis (disorder) 528664935(S NOMED) Diagnosis active 07/25/2017 Melanocytic nevus of trunk (disorder) 371864380(S NOMED) Diagnosis active 2016 History of clinical finding in subject (situation) 067334617(S NOMED) Problem active Arthritis (disorder) 8716644(SNO MED) Problem active Increased blood pressure (finding) 05431620(SN OMED) Problem active Eczema (disorder) 27937216(SN OMED) Problem active Results No data Encounters Service provided at [address], [facility] [address], [place], [place] [id number]. Office phonenumber is [phone]. Office fax number is [phone]. Encounter Diagnosis Location Date / Time Type Eczema (L20.89)Notalgia Pare sthetica (R20.2)Benign Nevi (D22.9)Seborrheic Keratoses (L82.1)Pigmented Purpura (L81.7)Lentigines (L81.4)Milia (L72.0) [place] 12/31/2024 13:30:00 [place] [id number] Reason For Referral No data Procedures Procedure Date Documentation of current medications (pr ocedure) 12/27/2023 12:00 am UTC Documentation of current medications (pr ocedure) 11/23/2021 12:00 am UTC Shave biopsy (procedure) 11/03/2020 12:0 0 am UTC Documentation of past medical history (p rocedure) Documentation of past medical history (p rocedure) Documentation of past medical history (p rocedure) Documentation of past medical history (p rocedure) Documentation of past medical history (p rocedure) Documentation of past medica l history (procedure) Lipoma right posterior arm 10/26/20 Dr. Tejeda Review Of Systems Provider reviewed on Dec 31, 2024.A focused review of systems was performed including Integumentary.No Problems With Healing And No Problems With Scarring (hypertrophic Or Keloid). Assessment 1.EczemaCounselingPrescription Medication Management: Continue Regimen - She will continue to use halobetasol as needed for flares..2.Notalgia ParestheticaCounseling3.Benign NeviCounseling4.Seborrheic KeratosesCounseling5.Pigmented PurpuraCounseling6.LentiginesCounseling7.MiliaCounselingAdditional Notes Plan of Care Future visit for 12/31/2025 - Follow up in 1 year for: Skin Check Code Detail Instructions [id number] triamcinolone aceton pj 0.1 % topical cream Apply bid to affected areas for 1-2 weeks at a time for flares. Do not use on face or skin folds. Instructions * I counseled the patient regarding the following:Skin care: Patient should bathe using lukewarm water with a mild cleanser and moisturize immediately after. Emollients should be applied at least 2-3 times daily. Avoid scented detergents or fabric softeners. Keep fingernails short. Avoid excessive hand washing.Expectations: The patient is aware that eczema is chronic in nature and can improve with moisturizers and topical steroids and worsen with stress, scented soaps, detergents, scratching, dryskin, changes in weather and skin infections.Contact office if: Eczema worsens or fails to improve despite several weeks of treatment; patient develops skin infections (such as: yellow honey colored crusts or cold sores). * I counseled the patient regarding the following:Skin care: Avoid scratching the area if possible. Apply ice or sarna anti-itch cream to the area to decrease pruritus. Regular topical application of over the counter capsaicin cream can help over time. Investigation for neck problems may be necessary. Expectations: Notalgia paresthetica is a relatively common condition which causes localized itchingor mild pain near the scapula. It occurs secondary to nerve problems, often associated with neck pathology.Contact office if: your pruritus worsens. * I counseled the patient regarding the following:Instructions: Monthly self- skin checks to monitor for any changes in moles are recommended.Expectations: Benign Nevi are pigmented nests of cells within the skin. No treatment is necessary.Contact Office if: Any moles change in size, shape or color; itch, burn or bleed. * I counseled the patient regarding the following:Skin Care: Seborrheic Keratoses are benign. No treatment is necessary.Expectations: Seborrheic Keratoses are benign warty growths. Patients get more ofthem as they age. Please call with any changes or concerns. * I counseled the patient regarding the following:Skin care: Pigmented Purpura can be treated with topical steroids, ascorbic acid and antihistamines.Expectations: Pigmented Purpura is an eruption of non-palpable purpuric macules on the lower extremities. The disease course is self-limited, but treatment is usually not effective.Contact office if: Patient develops palpable lesions, arthralgias or significant lower extremity edema. * I counseled the patient regarding the following:Skin Care: Lentigines can improve with broad spectrum sunscreen, sun avoidance, bleaching creams, retinoids, chemical peels and laser.Expectations: Lentigines are benign pigmented lesions that occur on sun-exposed and sun-damaged skin. * I counseled the patient regarding the following:Skin Care: Milia can resolve with retinoids or extraction.Expectations: Milia are benign superficial cysts filled with keratin. No treatment is necessary. Social History Code Activity Start Date End Date [id number] (SNOMED) Never smoker Sex female Sexual orientation Unspecified Gender identity Unspecified Vital Signs No data
== END 2025-01-01 13:18 | disposition home or self-care (01) ==
LOC: HO.MAMMO 13:17
PROVIDERS: PCP Internal Medicine; Visit Provider Internal Medicine
DX: Z12.31 Encounter for screening mammogram for malignant neoplasm of breast (principal)
CPT/HCPCS: 77063; 77067

== ENCOUNTER → 2025-01-01 13:30 | Outpatient (BNV) | payer MEDICARE, SELFPAY | PROVIDERS: PCP Internal Medicine; Visit Provider Radiology Body Imaging | DX: Z12.31 Encounter for screening mammogram for malignant neoplasm of breast (principal) | CPT/HCPCS: 77063; 77067 ==